=== PATIENT | female | born 1955 | race Caucasian/White ===

== ENCOUNTER → 2018-03-03 | Outpatient (CLI) | payer MEDICARE, OTHER ==
--- NOTE | 2018-03-03 09:34 | MR ---
EXAMINATION TYPE: MR chest wo/w con DATE OF EXAM: 03/03/2018 COMPARISON: CT chest October 20, 2016. HISTORY: Localized swelling, mass and lump, trunk. Palpable right-sided lump per patient for 2 months .. CONTRAST: Standard multiplanar, multisequence MRI departmental protocol utilizing 4.5 mL intravenous Gadavist g adolinium contrast. FINDINGS: A vitamin E capsule is placed at level of palpable abnormality posterior lateral lower righ t thorax on axial image 38. At this level I see no worrisome solid or cystic mass or abnormal fluid c ollection. No suspicious skin thickening is seen. No suspicious enhancement is noted. Visualized lungs are grossly clear. Scattered fibroglandular tissue seen in both breasts. There are m ultiple cystic lesions in visualized portion of right kidney. Partially imaged which correlates with CT abdomen and pelvis October 03, 2016. IMPRESSION: No suspicious mass or finding is seen to account for patient's symptoms posterior lateral right lower thorax.
== END | disposition home or self-care (01) ==
LOC: RADMRIMAIN 07:39
PROVIDERS: ATTEND Family Medicine
DX: R22.2 Localized swelling, mass and lump, trunk (principal)
CPT/HCPCS: 71552; A9581

== ENCOUNTER 2018-05-15 16:47 | Inpatient (IN) | payer MEDICARE, OTHER ==
--- NOTE | 2018-05-15 18:11 | ED ---
Chest Pain HPI - General Chief Complaint: Chest Pain Stated Complaint: Abnormal Ekg Time Seen by Provider: 05/15/18 18:11 Source: patient Mode of arrival: ambulatory Limitations: no limitations - History of Present Illness Initial Comments: Ms. Reid is a 62-year-old female with a history of hyperlipidemia, diabetes and tobacco abuse who presents the ED today for evaluation of chest pain. Patient reports that over the weekend she was experiencing intermittent chest pressure, the symptoms were worse with any exertion. Patient states that she was camping and when she walked from her campsite [address] down to her sister kim that she would have pressure in her chest and a feeling that she couldn't catch her breath which would prompt her to have to sit down and rest. Patient reports that this became concerning for her so she called her primary care physician and was evaluated in the office today. Upon evaluation she had an EKG completed which revealed some changes from her previous EKG which was completed in 2012. At that time she was advised to come to the ER for further evaluation. Patient states that she had an EKG in 2012, around that time she also underwent a stress test but was unable to complete it. She never followed up with cardiology. She has no known cardiac disease. She does have a family history of cardiac disease. - Related Data Home Medications Medication Instructions Recorded Confirmed Atorvastatin [Lipitor] 10 mg PO HS 10/03/16 05/15/18 Naproxen 500 mg PO Q12HR PRN 10/03/16 05/15/18 metFORMIN HCL [Glucophage] 500 mg PO DAILY 10/03/16 05/15/18 Cholecalciferol [Vitamin D3] 1,000 unit PO DAILY 05/15/18 05/15/18 Cyanocobalamin (Vitamin B-12) 1,000 mcg PO DAILY 05/15/18 05/15/18 [Vitamin B-12] Insulin Degludec [Tresiba 26 unit SQ DAILY 05/15/18 05/15/18 Flextouch U-200] Allergies Allergy/AdvReac Type Severity Reaction Status Date / Time aspirin AdvReac Nausea & Verified 05/15/18 19:09 Vomiting Review of Systems ROS Statement: Those systems with pertinent positive or pertinent negative responses have been documented in the HPI. ROS Other: All systems not noted in ROS Statement are negative. Constitutional: Denies: fever, chills ENT: Denies: throat pain Respiratory: Reports: cough Cardiovascular: Reports: chest pain, dyspnea on exertion Gastrointestinal: Denies: abdominal pain, nausea, vomiting Genitourinary: Denies: urgency, dysuria Musculoskeletal: Denies: back pain Skin: Denies: rash Neurological: Denies: headache, weakness Psychiatric: Denies: anxiety, depression Hematological/Lymphatic: Denies: easy bleeding, easy bruising EKG Findings - EKG Comments: EKG Findings:: EKG performed at 1826 - rate is 83, rhythm is normal sinus, axis , normal intervals, patient is noted to have T-wave inversions in all lateral leads. No acute ST elevations. Past Medical History Past Medical History: Diabetes Mellitus Additional Past Medical History / Comment(s): hypercholestremia History of Any Multi-Drug Resistant Organisms: None Reported Past Surgical History: Appendectomy, Cholecystectomy Additional Past Surgical History / Comment(s): tubal ligation, Past Psychological History: No Psychological Hx Reported Smoking Status: Current some day smoker Past Alcohol Use History: None Reported Past Drug Use History: None Reported General Exam Limitations: no limitations Course Vital Signs 05/15/18 05/15/18 17:47 20:47 Temperature 98.3 F Pulse Rate 81 78 Respiratory 18 16 Rate Blood Pressure 122/76 113/67 O2 Sat by Pulse 100 98 Oximetry Chest Pain MDM - Differential Diagnosis ACS - MDM The patient was seen and evaluated, history was obtained from the patient. Patient with no known cardiac history however has multiple risk factors HEART score - 9 EKG with significant T wave inversions Aspirin was ordered, patient initially declined stating that gives her nausea. I stressed to the patient the importance of taking aspirin having chest pain. Patient is agreeable. Nitro paste was ordered Labs resulted with an elevated troponin, repeat EKG was ordered, patient care was discussed with cardiology. Repeat EKG again reveals T-wave inversions but less so than previous Cardiology recommends patient be given by mouth Lopressor, IV nitro, IV heparin , bed rest with bedside commode. Nothing by mouth at midnight with the plan for cardiac catheterization in the morning. Recommended that if patient experiences any chest pain night a repeat EKG be performed to cardiology be notified. Patient care was discussed with Dr Che who accepts admission for NSTEMI with consult to cardiology and plan for cardiac cath in the morning. Disposition Clinical Impression: NSTEMI (non-ST elevated myocardial infarction) Disposition: ADMITTED IP TO THIS HOSP Referrals: Fernanda Villalba MD [Primary Care Provider] - 1-2 days Decision Time: 20:10
[2018-05-15] MEDS ORDERED: ASPIRIN 81 MG PO STA (18:20)
[2018-05-15] MEDS ORDERED: NITROGLYCERIN OINT 1 INCH/GM PACKET TOPICAL STA (18:20)
[2018-05-15 19:00] LABS: Basophils # (A) 0.1 k/uL (0-0.2); Basophils % (A) 1 %; Eosinophils # (A) 0.2 k/uL (0-0.7); Eosinophils % (A) 2 %; HCT 40.9 % (34.0-46.0); HGB 14.1 gm/dL (11.4-16.0); Lymphocytes # (A) 2.6 k/uL (1.0-4.8); Lymphocytes % (A) 31 %; MCH 31.4 pg (25.0-35.0); MCHC 34.4 g/dL (31.0-37.0); MCV 91.4 fL (80.0-100.0); Mean Platelet Volume 6.9; Monocytes # (A) 0.6 k/uL (0-1.0); Monocytes % (A) 7 %; Neutrophils # (A) 4.9 k/uL (1.3-7.7); Neutrophils % (A) 58 %; Platelet Count 378 k/uL (150-450); RBC 4.47 m/uL (3.80-5.40); RDW 13.4 % (11.5-15.5); WBC 8.3 k/uL (3.8-10.6)
--- NOTE | 2018-05-15 19:05 | XR ---
EXAMINATION TYPE: XR chest 2V DATE OF EXAM: 05/15/2018 COMPARISON: 10/03/2016 HISTORY: Chest pain TECHNIQUE: Frontal and lateral views of the chest are obtained. FINDINGS: Heart and mediastinum are normal. Lungs are clear. Diaphragm is normal. Bony thorax is int act. There are chest leads. IMPRESSION: Normal chest. No change.
[2018-05-15 19:11] LABS: ALT 26 U/L (9-52); AST 24 U/L (14-36); Albumin 4.1 g/dL (3.5-5.0); Alkaline Phosphatase 54 U/L (38-126); Anion Gap 7 mmol/L; Blood Urea Nitrogen 12 mg/dL (7-17); Calcium 9.1 mg/dL (8.4-10.2); Carbon Dioxide 26 mmol/L (22-30); Chloride 107 mmol/L (98-107); Glucose 196 mg/dL (74-99); Magnesium 1.9 mg/dL (1.6-2.3); Potassium 4.2 mmol/L (3.5-5.1); Sodium 140 mmol/L (137-145); Total Bilirubin 0.7 mg/dL (0.2-1.3); Total Protein 6.1 g/dL (6.3-8.2)
[2018-05-15 19:35] LABS: Creatine Kinase MB 10.5 ng/mL (0.0-2.4); Troponin I 0.89 ng/mL (0.000-0.034)
[2018-05-15 19:36] LABS: Partial Thromboplastin Time 24.6 sec (22.0-30.0); Prothrombin Time 9.8 sec (9.0-12.0)
[2018-05-15] MEDS ORDERED: HEPARIN SODIUM,PORCINE 5,000 UNIT/ML 1 ML VIAL IV PRN (19:37)
[2018-05-15] MEDS ORDERED: HEPARIN SODIUM,PORCINE 5,000 UNIT/ML 1 ML VIAL IV ONE (19:37)
[2018-05-15 19:49] LABS: Glucose,Whole Blood 147 mg/dL (75-99)
[2018-05-15] MEDS ORDERED: NITROGLYCERIN-D5W PMX 50 MG in DEXTROSE/WATER 1 250ML.BAG IV ONE (20:07)
[2018-05-15] MEDS ORDERED: METOPROLOL TARTRATE 25 MG TAB PO STA (20:07)
[2018-05-15] MEDS ORDERED: NALOXONE 0.4 MG/ML 1 ML VIAL IV PRN (20:10)
[2018-05-15] MEDS: SODIUM CHLORIDE 0.9% 1,000 ML IV SCH (20:49)
[2018-05-15] MEDS: HEPARIN SOD,PORK IN 0.45% NACL 25,000 UNIT in 0.45% NACL 1 500ML.BAG IV SCH (20:53)
[2018-05-16 05:40] LABS: Glucose,Whole Blood 43 mg/dL (75-99)
[2018-05-16 05:57] LABS: Glucose,Whole Blood 85 mg/dL (75-99)
[2018-05-16 06:34] LABS: Basophils # (A) 0.1 k/uL (0-0.2); Basophils % (A) 1 %; Eosinophils # (A) 0.2 k/uL (0-0.7); Eosinophils % (A) 2 %; HCT 38.5 % (34.0-46.0); HGB 12.7 gm/dL (11.4-16.0); Lymphocytes # (A) 1.6 k/uL (1.0-4.8); Lymphocytes % (A) 18 %; MCH 31.1 pg (25.0-35.0); MCHC 33.1 g/dL (31.0-37.0); MCV 93.9 fL (80.0-100.0); Mean Platelet Volume 7.2; Monocytes # (A) 0.7 k/uL (0-1.0); Monocytes % (A) 8 %; Neutrophils # (A) 6.6 k/uL (1.3-7.7); Neutrophils % (A) 71 %; Platelet Count 330 k/uL (150-450); RDW 13.5 % (11.5-15.5); WBC 9.3 k/uL (3.8-10.6)
[2018-05-16] MEDS: SODIUM CHLORIDE 0.9% 1,000 ML IV SCH (08:41)
[2018-05-16] MEDS: ACETAMINOPHEN TAB 325 MG TAB PO PRN (09:38)
[2018-05-16] MEDS ORDERED: NITROGLYCERIN SL TABS 0.4 MG TAB SUBLINGUAL PRN ×2 (09:42→15:27)
[2018-05-16] MEDS ORDERED: ATORVASTATIN 80 MG TAB PO STA (09:42)
[2018-05-16] MEDS ORDERED: ASPIRIN 325 MG TAB PO STA (09:42)
[2018-05-16] MEDS ORDERED: ALPRAZolam 0.25 MG TAB PO PRN (09:42)
[2018-05-16] MEDS ORDERED: ALPRAZolam 0.5 MG TAB PO PRN (09:42)
--- NOTE | 2018-05-16 10:49 | P.CRDCN ---
History of Present Illness Consult date: 05/16/18 Chief complaint: Chest discomfort History of present illness: This is a pleasant 62-year-old female patient with a past medical history significant for diabetes, hypertension, dyslipidemia, and significant history of smoking, presented to the emergency room complaining of chest discomfort. The patient was in her usual state of health until this past when she started experiencing intermittent episodes of chest discomfort. She describes classical anginal symptoms of chest discomfort. She stated that the discomfort is only with exertion and better with resting. Every time she moved to do something at home she developed chest discomfort and once she stopped doing what she is doing the pain will go away. The pain was a pressure in the middle of the chest associated with shortness of breath and sweating. Currently the patient is pain-free on heparin IV. The patient was ruled in for acute non-ST patient myocardial infarction. The troponin came in to be alleviated. The EKG showed sinus rhythm with T-wave inversion throughout the chest leads. Giving the patient's symptoms and blood work which indicated acute non-ST patient myocardial infarction I did recommend proceeding with a heart catheterization. The procedure in details was explained to the patient as well as to her daughter and her sister in the room. The patient will be scheduled to undergo the procedure in the next few hours. Past Medical History Past Medical History: Diabetes Mellitus Additional Past Medical History / Comment(s): hypercholestremia History of Any Multi-Drug Resistant Organisms: None Reported Past Surgical History: Appendectomy, Cholecystectomy Additional Past Surgical History / Comment(s): tubal ligation, Past Anesthesia/Blood Transfusion Reactions: No Reported Reaction Past Psychological History: No Psychological Hx Reported Smoking Status: Current some day smoker Past Alcohol Use History: None Reported Past Drug Use History: None Reported - Past Family History Father Family Medical History: Cancer Mother Family Medical History: Cancer, Coronary Artery Disease (CAD), Diabetes Mellitus , Myocardial Infarction ([place]) Medications and Allergies Home Medications Medication Instructions Recorded Confirmed Type Atorvastatin [Lipitor] 10 mg PO HS 10/03/16 05/15/18 History Naproxen 500 mg PO Q12HR PRN 10/03/16 05/15/18 History metFORMIN HCL [Glucophage] 500 mg PO DAILY 10/03/16 05/15/18 History Cholecalciferol [Vitamin D3] 1,000 unit PO DAILY 05/15/18 05/15/18 History Cyanocobalamin (Vitamin B-12) 1,000 mcg PO DAILY 05/15/18 05/15/18 History [Vitamin B-12] Insulin Degludec [Tresiba 26 unit SQ DAILY 05/15/18 05/15/18 History Flextouch U-200] Allergies Allergy/AdvReac Type Severity Reaction Status Date / Time aspirin AdvReac Nausea & Verified 05/15/18 19:09 Vomiting Physical Exam Vitals: Vital Signs Temp Pulse Pulse Resp BP BP Pulse Ox 05/16/18 08:30 96.7 F L 70 18 96/55 96 05/16/18 04:00 97.1 F L 76 16 103/56 97 05/16/18 00:00 97.5 F L 74 15 86/55 97 05/15/18 22:19 76 17 90/62 97 05/15/18 21:46 74 17 97/59 95 05/15/18 21:16 84 17 106/56 96 05/15/18 20:47 78 16 113/67 98 05/15/18 20:40 97.5 F L 74 15 86/55 97 05/15/18 17:47 98.3 F 81 18 122/76 100 Intake and Output 05/15/18 05/16/18 05/16/18 22:59 06:59 14:59 Intake Total 132.358 62.422 Output Total 150 400 Balance -17.642 -337.578 Intake: Intake, IV Titration 132.358 62.422 Amount Heparin Sod,Pork in 0.45% 57.358 62.422 NaCl 25,000 unit In 0.45 % NaCl 1 500ml.bag @ 12 UNITS/KG/HR 11.21 mls/hr IV .Q24H [facility] Rx#: [id number] Nitroglycerin-D5w Pmx 50 0 mg In Dextrose/Water 1 250ml.bag @ 5 MCG/MIN 1.5 mls/hr IV .Q24H ONE Rx#: [id number] Sodium Chloride 0.9% 1, 75 000 ml @ 75 mls/hr IV . [id number] [facility] Rx#:[id number] Output: Urine 150 400 Other: Voiding Method Bedside Commode Bedside Commode # Voids 1 Weight 46.8 kg 46.8 kg - Constitutional General appearance: no acute distress - Respiratory Respiratory: bilateral: CTA - Cardiovascular Rhythm: regular Heart sounds: normal: S1, S2 Results 05/16/18 06:13 05/15/18 18:44 Cardiac Enzymes 05/15/18 05/15/18 05/16/18 Range/Units 18:44 18:44 00:48 AST 24 (14-36) U/L CK-MB (CK-2) 10.5 H* (0.0-2.4) ng/mL Troponin I 0.890 H* 1.910 H* (0.000-0.034) ng/mL 05/16/18 Range/Units 06:13 AST (14-36) U/L CK-MB (CK-2) (0.0-2.4) ng/mL Troponin I 1.820 H* (0.000-0.034) ng/mL Coagulation 05/15/18 05/16/18 05/16/18 Range/Units 18:44 00:48 06:57 PT 9.8 (9.0-12.0) sec APTT 24.6 88.9 H 41.8 H (22.0-30.0) sec CBC 05/15/18 05/16/18 Range/Units 18:44 06:13 WBC 8.3 9.3 (3.8-10.6) k/uL RBC 4.47 4.10 (3.80-5.40) m/uL Hgb 14.1 12.7 (11.4-16.0) gm/dL Hct 40.9 38.5 (34.0-46.0) % Plt Count 378 330 (150-450) k/uL Comprehensive Metabolic Panel 05/15/18 Range/Units 18:44 Sodium 140 (137-145) mmol/L Potassium 4.2 (3.5-5.1) mmol/L Chloride 107 (98-107) mmol/L Carbon Dioxide 26 (22-30) mmol/L BUN 12 (7-17) mg/dL Creatinine 0.55 (0.52-1.04) mg/dL Glucose 196 H (74-99) mg/dL Calcium 9.1 (8.4-10.2) mg/dL AST 24 (14-36) U/L ALT 26 (9-52) U/L Alkaline Phosphatase 54 (38-126) U/L Total Protein 6.1 L (6.3-8.2) g/dL Albumin 4.1 (3.5-5.0) g/dL Current Medications Generic Name Dose Route Start Last Admin Trade Name Javier PRN Reason Stop Dose Admin Acetaminophen 650 mg 05/16/18 09:13 05/16/18 09:38 Tylenol Tab PO 650 mg Q6HR PRN Administration Fever and/ or Pain Alprazolam 0.25 mg 05/16/18 09:42 Xanax PO Q6HR PRN Mild Anxiety Alprazolam 0.5 mg 05/16/18 09:42 Xanax PO Q6HR PRN Moderate Anxiety Heparin Sodium (Porcine) 0 unit 05/15/18 19:37 05/16/18 08:41 Heparin IV 1,170 unit PER PROTOCOL PRN Administration Low PTT Protocol Heparin Sodium/Sodium Chloride 500 mls @ 11.21 mls/hr 05/15/18 19:45 08:41 25,000 unit/ Sodium Chloride IV 12 units/kg/hr .Q24H DONNA 11.21 mls/hr Titration Protocol 12 UNITS/KG/HR Nitroglycerin/Dextrose 50 mg/ 250 mls @ 1.5 mls/hr 05/15/18 20:07 05/15/18 20 :49 IV Solution IV 05/16/18 20:06 5 mcg/min .Q24H ONE 1.5 mls/hr Administration Protocol 5 MCG/MIN Sodium Chloride 1,000 mls @ 75 mls/hr 05/15/18 20:15 05/16/18 08:41 Saline 0.9% IV 75 mls/hr .[id number] DONNA Administration Naloxone HCl 0.2 mg 05/15/18 20:10 Narcan IV Q2M PRN Opioid Reversal Nitroglycerin 0.4 mg 05/16/18 09:42 Nitrostat SUBLINGUAL Q5M PRN Chest Pain Intake and Output 05/15/18 05/16/18 05/16/18 22:59 06:59 14:59 Intake Total 132.358 62.422 Output Total 150 400 Balance -17.642 -337.578 Intake: Intake, IV Titration 132.358 62.422 Amount Heparin Sod,Pork in 0.45% 57.358 62.422 NaCl 25,000 unit In 0.45 % NaCl 1 500ml.bag @ 12 UNITS/KG/HR 11.21 mls/hr IV .Q24H [facility] Rx#: [id number] Nitroglycerin-D5w Pmx 50 0 mg In Dextrose/Water 1 250ml.bag @ 5 MCG/MIN 1.5 mls/hr IV .Q24H ONE Rx#: [id number] Sodium Chloride 0.9% 1, 75 000 ml @ 75 mls/hr IV . [id number] [facility] Rx#:[id number] Output: Urine 150 400 Other: Voiding Method Bedside Commode Bedside Commode # Voids 1 Weight 46.8 kg 46.8 kg 05/16/18 06:13 05/15/18 18:44 Assessment and Plan Assessment: Assessment #1 acute non-ST elevation myocardial infarction #2 significant history of smoking #3 diabetes type 2 #4 hypertension #5 dyslipidemia Plan #1 the patient is scheduled to undergo a heart catheterization #2 further recommendation to follow that. #3 obtain an echocardiogram was Doppler #4 antiplatelet and anti-ischemic medications #5 follow-up with the patient Thank you for allowing us participate in her care
--- NOTE | 2018-05-16 11:49 | P.HPIM ---
History of Present Illness H&P Date: 05/16/18 Chief Complaint: Chest pain This is a 62-year-old female, patient of Dr. Villalba. She has a known past medical history of nicotine dependence, diabetes mellitus and hyperlipidemia. Patient reports having episodes of chest pain intermittently over the last 3-4 days. She reports that the pain has radiated up into both shoulders bilaterally and down into the left upper arm. Chest pain was worse with activity. Pain was relieved with sitting. She denies any shortness of breath, nausea or diaphoresis with the chest pain. She does admit to feeling dizzy and lightheaded. She initially went to her PCP office because of the chest pain. EKG was done there and was reported to be abnormal and patient was told to go to the emergency room for further evaluation and treatment. Patient was found to have an acute non-ST elevated myocardial infarction. Troponins on admission 0.890, 1.910, 1.820. She's been seen and evaluated by cardiology she's currently on IV heparin and nitroglycerin drip. She is scheduled for a heart catheterization this afternoon. Patient has been having episodes of hypotension. Chest x-ray was negative. EKG shows normal sinus rhythm, septal infarct age undetermined and T-wave abnormality consider anterior lateral ischemia. Patient does have a mother who had open heart surgery at an older age. She denies any fevers chills or sweats. Denies any nausea vomiting bowel movement changes or urinary symptoms. Review of Systems Please refer to HPI otherwise unremarkable Past Medical History Past Medical History: Diabetes Mellitus Additional Past Medical History / Comment(s): hypercholestremia History of Any Multi-Drug Resistant Organisms: None Reported Past Surgical History: Appendectomy, Cholecystectomy Additional Past Surgical History / Comment(s): tubal ligation, Past Anesthesia/Blood Transfusion Reactions: No Reported Reaction Past Psychological History: No Psychological Hx Reported Smoking Status: Current some day smoker Past Alcohol Use History: None Reported Past Drug Use History: None Reported - Past Family History Father Family Medical History: Cancer Mother Family Medical History: Cancer, Coronary Artery Disease (CAD), Diabetes Mellitus , Myocardial Infarction ([place]) Medications and Allergies Home Medications Medication Instructions Recorded Confirmed Type Atorvastatin [Lipitor] 10 mg PO HS 10/03/16 05/15/18 History Naproxen 500 mg PO Q12HR PRN 10/03/16 05/15/18 History metFORMIN HCL [Glucophage] 500 mg PO DAILY 10/03/16 05/15/18 History Cholecalciferol [Vitamin D3] 1,000 unit PO DAILY 05/15/18 05/15/18 History Cyanocobalamin (Vitamin B-12) 1,000 mcg PO DAILY 05/15/18 05/15/18 History [Vitamin B-12] Insulin Degludec [Tresiba 26 unit SQ DAILY 05/15/18 05/15/18 History Flextouch U-200] Allergies Allergy/AdvReac Type Severity Reaction Status Date / Time aspirin AdvReac Nausea & Verified 05/15/18 19:09 Vomiting Physical Exam Vitals: Vital Signs Temp Pulse Pulse Resp BP BP Pulse Ox 05/16/18 08:30 96.7 F L 70 18 96/55 96 05/16/18 04:00 97.1 F L 76 16 103/56 97 05/16/18 00:00 97.5 F L 74 15 86/55 97 05/15/18 22:19 76 17 90/62 97 05/15/18 21:46 74 17 97/59 95 05/15/18 21:16 84 17 106/56 96 05/15/18 20:47 78 16 113/67 98 05/15/18 20:40 97.5 F L 74 15 86/55 97 05/15/18 17:47 98.3 F 81 18 122/76 100 Intake and Output 05/15/18 05/16/18 05/16/18 22:59 06:59 14:59 Intake Total 132.358 62.422 Output Total 150 400 Balance -17.642 -337.578 Intake: Intake, IV Titration 132.358 62.422 Amount Heparin Sod,Pork in 0.45% 57.358 62.422 NaCl 25,000 unit In 0.45 % NaCl 1 500ml.bag @ 12 UNITS/KG/HR 11.21 mls/hr IV .Q24H [facility] Rx#: [id number] Nitroglycerin-D5w Pmx 50 0 mg In Dextrose/Water 1 250ml.bag @ 5 MCG/MIN 1.5 mls/hr IV .Q24H ONE Rx#: [id number] Sodium Chloride 0.9% 1, 75 000 ml @ 75 mls/hr IV . [id number] [facility] Rx#:[id number] Output: Urine 150 400 Other: Voiding Method Bedside Commode Bedside Commode # Voids 1 Weight 46.8 kg 46.8 kg Head normocephalic Neck supple Lungs clear to auscultation bilaterally no wheezing or crackles Heart regular rate and rhythm S1-S2, no rub or gallop Abdomen is soft nontender nondistended positive bowel sounds no hepatosplenomegaly Extremities no edema Neuro alert and orientated to 3 Results CBC & Chem 7: 05/16/18 06:13 05/15/18 18:44 Labs: Abnormal Lab Results - Last 24 Hours (Table) 05/15/18 05/15/18 05/15/18 Range/Units 18:44 18:44 19:39 APTT (22.0-30.0) sec Glucose 196 H (74-99) mg/dL POC Glucose (mg/dL) 147 H (75-99) mg/dL Total Creatine Kinase 153 H (30-135) U/L CK-MB (CK-2) 10.5 H* (0.0-2.4) ng/mL Troponin I 0.890 H* (0.000-0.034) ng/mL Total Protein 6.1 L (6.3-8.2) g/dL 05/16/18 05/16/18 05/16/18 Range/Units 00:48 00:48 05:38 APTT 88.9 H (22.0-30.0) sec Glucose (74-99) mg/dL POC Glucose (mg/dL) 43 L (75-99) mg/dL Total Creatine Kinase (30-135) U/L CK-MB (CK-2) (0.0-2.4) ng/mL Troponin I 1.910 H* (0.000-0.034) ng/mL Total Protein (6.3-8.2) g/dL 05/16/18 05/16/18 Range/Units 06:13 06:57 APTT 41.8 H (22.0-30.0) sec Glucose (74-99) mg/dL POC Glucose (mg/dL) (75-99) mg/dL Total Creatine Kinase (30-135) U/L CK-MB (CK-2) (0.0-2.4) ng/mL Troponin I 1.820 H* (0.000-0.034) ng/mL Total Protein (6.3-8.2) g/dL Thrombosis Risk Factor Assmnt - Choose All That Apply Any of the Below Risk Factors Present?: Yes Each Factor Represents 1 point: Acute [place] Other Risk Factors: Yes Each Risk Factor Represents 2 Points: Age 61-74 years Thrombosis Risk Factor Assessment Total Risk Factor Score: 3 Thrombosis Risk Factor Assessment Level: Moderate Risk Assessment and Plan Assessment: 1. Acute non-ST elevated myocardial infarction present on admission: Patient scheduled for heart catheterization this afternoon. Continue IV heparin. Cardiology following closely 2. Diabetes mellitus type 2: Episodes of hypoglycemia likely related to patient 's nothing by mouth status. We'll hold patient's metformin and Tresiba. Continue to monitor blood sugars and sliding scale if needed. Patient was given a sandwich this morning per cardiology. Continue to monitor glucose levels 3. Nicotine dependence: Discussed smoking cessation for greater than 3 minutes. Patient refusing nicotine patch 4. Hyperlipidemia GI prophylaxis Pepcid and DVT prophylaxis IV heparin
[2018-05-16 13:21] LABS: Glucose,Whole Blood 262 mg/dL (75-99)
[2018-05-16] MEDS: INSULIN ASPART 100 UNIT/ML 1 ML 10 ML VIAL SQ SCH ×3 (13:53→21:26)
[2018-05-16] MEDS ORDERED: MIDAZOLAM 2 MG/2 ML VIAL IVP ONE (14:47)
[2018-05-16] MEDS ORDERED: LIDOCAINE 1% (PF) 10MG/ML VIAL SQ ONE (14:48)
[2018-05-16] MEDS ORDERED: SODIUM CHLORIDE 0.9% 1,000 ML IV ONE (14:53)
[2018-05-16] MEDS ORDERED: fentaNYL (PF) 50 MCG/ML 2 ML AMP IVP ONE (14:53)
[2018-05-16] MEDS ORDERED: BIVALIRUDIN BOLUS 250 MG/50 ML IV ONE (15:01)
[2018-05-16] MEDS ORDERED: BIVALIRUDIN 250 MG in SODIUM CHLORIDE 0.9% 50 ML IV ONE (15:02)
[2018-05-16] MEDS ORDERED: CLOPIDOGREL 75 MG TAB PO ONE (15:07)
[2018-05-16] MEDS ORDERED: NITROGLYCERIN 1000MCG/10ML SYRINGE INTRACORON ONE (15:12)
[2018-05-16] MEDS ORDERED: IOPAMIDOL-370 125ML BTL INJ ONE (15:18)
[2018-05-16] MEDS ORDERED: RX INFO: IV CONTRAST WAS GIVEN 1 EACH MISC MISCELLANE PRN (15:27)
[2018-05-16] MEDS ORDERED: ATROPINE SULFATE 0.1 MG/ML 10ML SYRINGE IV PRN (15:27)
[2018-05-16] MEDS ORDERED: ZOLPIDEM 5 MG TAB PO PRN (15:27)
[2018-05-16] MEDS ORDERED: MAG HYDROX/AL HYDROX/SIMETH 30 ML CUP PO PRN (15:27)
[2018-05-16] MEDS ORDERED: SODIUM CHLORIDE 0.9% 1,000 ML IV SCH (15:30)
[2018-05-16] MEDS: HEPARIN SOD,PORK IN 0.45% NACL 25,000 UNIT in 0.45% NACL 1 500ML.BAG IV SCH (16:09)
[2018-05-16 16:22] LABS: Glucose,Whole Blood 230 mg/dL (75-99)
--- NOTE | 2018-05-16 16:35 | CC ---
CARDIAC CATHETERIZATION REPORT DATE OF SERVICE: May 16, 2018 PERFORMING PHYSICIAN: Jesús Casas MD, vegetable specker. PROCEDURE PERFORMED: 1. Selective right and left coronary angiogram. 2. Left heart catheterization. 3. Successful stenting of the proximal LAD using 2.5 x 23 mm Xience KENIA with good angiographic results. INDICATION: This is a pleasant 62-year-old female patient off with diabetes, hypertension, and significant history of smoking, presented to the emergency room with chest discomfort and was ruled in for acute non ST elevation myocardial infarction. Heart catheterization was recommended. APPROACH: Right common femoral artery. COMPLICATION: None. LEVEL OF SEDATION: Moderate sedation length of 37 minutes. PROCEDURE DESCRIPTION: After obtaining an informed consent, the patient was brought to cardiac phlebotomist medical lab assistant. The right common femoral artery was cannulated using micropuncture technique and a micropuncture wire passed easily then I placed a 6-Egyptian sheath in the right common femoral artery. After that, I did selective right and left coronary angiogram using JR 3.5 and JL4 catheters. Left heart catheterization was performed using the JR4, which flipped into the LV then I did pullback across aortic valve. After that I did intervene on the LAD. Please see a separate paragraph for that. SELECTIVE CORONARY ANGIOGRAM: 1. The RCA is a moderate caliber vessel and it is a dominant vessel. It does have mild diffuse disease. It bifurcates into PDA and PLV branches both are angiographically normal. 2. The left main has mild disease in the ostium. It bifurcates into the circumflex and left anterior descending artery. 3. The left circumflex is a moderate caliber vessel and is a nondominant vessel with the proximal circ is normal and gives rise into a large OM branch which has disease in the proximal portion appeared to be in the range of 50% to 60%. The left circumflex continues after that as a moderate caliber vessel in the AV groove. 4. The LAD: The proximal LAD has a lesion appeared to be in the range of 90% with haziness appeared to be a thrombus. This lesion is by the bifurcation of the first diagonal branch. The LAD in the mid and distal portion appeared to have mild diffuse disease only. In the midportion gives rise into a second diagonal branch which seems to be angiographically normal. 5. HEMODYNAMICS: The left ventricular end-diastolic pressure was 12 mmHg and no gradient was identified across the aortic valve. PCI OF THE LAD: Anticoagulation was initiated using Angiomax. Subsequently I took JL3 guide and the left main was engaged. A whisper wire was used to wire the LAD. After that I did balloon angioplasty using 2.0 x 12 mm balloon before I deployed 2.5 x 23 mm Xience KENIA where the stent was positioned under fluoroscopy guidance and deployed under its nominal pressure. The following angiogram showed good angiographic results with reduction of stenosis from 80-90% to 0% with good ELIZABETH-3 flow. The procedure was completed without any complication. CONCLUSION: 1. Acute non ST elevation myocardial infarction. 2. Mild disease involving the RCA. 3. Intermediate disease involving OM branch of the left circumflex appeared to be in the range of 50% to 60%. 4. Critical disease involving the proximal LAD with plaque rupture and thrombus formation. 5. Successful stenting of the proximal LAD as described above. POSTPROCEDURE MANAGEMENT: 1. Maximize medical treatment. 2. Follow up with the patient. MMMONIQUE / IJN: [id number] /
--- NOTE | 2018-05-16 17:09 | ECHOF ---
Referral Reason:CHEST PAIN MEASUREMENTS -------- HEIGHT: 149.9 cm WEIGHT: 46.7 kg BP: 96/55 IVSd: 0.8 cm (0.6 - 1.1) LVIDd: 4.0 cm (3.9 - 5.3) LVPWd: 0.8 cm (0.6 - 1.1) IVSs: 1.0 cm LVIDs: 3.4 cm LVPWs: 1.1 cm LAESV Index (A-L): 21.28 ml/m Ao Diam: 3.0 cm (2.0 - 3.7) AV Cusp: 1.4 cm (1.5 - 2.6) MV E Christiano: 1.24 m/s MV DecT: 217 ms MV A Christiano: 1.21 m/s MV E/A Ratio: 1.02 RAP: 5.00 mmHg RVSP: 27.14 mmHg FINDINGS -------- Sinus rhythm. This was a technically adequate study. The left ventricular size is normal. Left ventricular wall thickness is normal. Overall left vent ricular systolic function is moderate-severely impaired with, an EF between 30 - 35 %. Septal Hypok inesis Apical Hypokinesis. The right ventricle is normal in size and function. Normal LA size by volume 22+/-6 ml/m2. The right atrium is normal in size. There is mild aortic valve sclerosis. There is no evidence of aortic regurgitation. There is no e vidence of aortic stenosis. The mitral valve leaflets are mildly thickened. Mild mitral regurgitation is present. Trace tricuspid regurgitation present. Right ventricular systolic pressure is normal at < 35 mmHg. There is no evidence of pulmonary hypertension. The pulmonic valve was not well visualized. The aortic root size is normal. Normal inferior vena cava with normal inspiratory collapse consistent with estimated right atrial pre ssure of 5 mmHg. There is no pericardial effusion. CONCLUSIONS -------- 1. Sinus rhythm. 2. This was a technically adequate study. 3. The left ventricular size is normal. 4. Left ventricular wall thickness is normal. 5. Overall left ventricular systolic function is moderate-severely impaired with, an EF between 30 - 35 %. 6. Septal Hypokinesis 7. Apical Hypokinesis. 8. Normal LA size by volume 22+/-6 ml/m2. 9. There is mild aortic valve sclerosis. 10. The mitral valve leaflets are mildly thickened. 11. Mild mitral regurgitation is present. 12. Trace tricuspid regurgitation present. 13. Right ventricular systolic pressure is normal at < 35 mmHg. 14. There is no evidence of pulmonary hypertension. 15. The pulmonic valve was not well visualized. 16. The aortic root size is normal. 17. There is no pericardial effusion. CHIEF CONSTRUCTION INSPECTOR: Charly Vaca RDCS
[2018-05-16 19:17] LABS: Hemoglobin A1C 9.9 % (4.0-6.0)
[2018-05-16 21:05] LABS: Glucose,Whole Blood 236 mg/dL (75-99)
[2018-05-16] MEDS: METOPROLOL TARTRATE 25 MG TAB PO SCH (21:26)
[2018-05-17] MEDS: SODIUM CHLORIDE 0.9% 1,000 ML IV SCH ×2 (04:37→08:23)
[2018-05-17 06:33] LABS: Glucose,Whole Blood 124 mg/dL (75-99)
[2018-05-17] MEDS: INSULIN ASPART 100 UNIT/ML 1 ML 10 ML VIAL SQ SCH ×4 (06:38→21:37)
[2018-05-17 06:42] LABS: Basophils % (A) 1 %; Eosinophils # (A) 0.2 k/uL (0-0.7); Eosinophils % (A) 3 %; HCT 35.5 % (34.0-46.0); HGB 11.7 gm/dL (11.4-16.0); Lymphocytes # (A) 2.2 k/uL (1.0-4.8); Lymphocytes % (A) 27 %; MCV 94.1 fL (80.0-100.0); Mean Platelet Volume 7.2; Monocytes # (A) 0.6 k/uL (0-1.0); Monocytes % (A) 7 %; Neutrophils % (A) 61 %; Platelet Count 309 k/uL (150-450); RBC 3.78 m/uL (3.80-5.40); RDW 14.7 % (11.5-15.5); WBC 8.1 k/uL (3.8-10.6)
[2018-05-17 07:34] LABS: ALT 69 U/L (9-52); AST 51 U/L (14-36); Albumin 2.9 g/dL (3.5-5.0); Alkaline Phosphatase 46 U/L (38-126); Anion Gap 3 mmol/L; Blood Urea Nitrogen 13 mg/dL (7-17); Calcium 8.5 mg/dL (8.4-10.2); Carbon Dioxide 26 mmol/L (22-30); Chloride 112 mmol/L (98-107); Glucose 110 mg/dL (74-99); Potassium 4.3 mmol/L (3.5-5.1); Sodium 141 mmol/L (137-145); Total Bilirubin 0.8 mg/dL (0.2-1.3); Total Protein 4.8 g/dL (6.3-8.2)
[2018-05-17] MEDS: FAMOTIDINE 20 MG TAB PO SCH (08:22)
[2018-05-17] MEDS: CLOPIDOGREL 75 MG TAB PO SCH (08:22)
[2018-05-17] MEDS: METOPROLOL TARTRATE 25 MG TAB PO SCH ×2 (08:22→20:16)
[2018-05-17] MEDS: ASPIRIN 325 MG TAB PO SCH (08:22)
[2018-05-17 11:47] VITALS: BMI 21.7
[2018-05-17 11:49] LABS: Glucose,Whole Blood 202 mg/dL (75-99)
--- NOTE | 2018-05-17 15:37 | P.PN ---
Subjective Progress Note Date: 05/17/18 This is a 62-year-old female, patient of Dr. Villalba. She has a known past medical history of nicotine dependence, diabetes mellitus and hyperlipidemia. Patient reports having episodes of chest pain intermittently over the last 3-4 days. She reports that the pain has radiated up into both shoulders bilaterally and down into the left upper arm. Chest pain was worse with activity. Pain was relieved with sitting. She denies any shortness of breath, nausea or diaphoresis with the chest pain. She does admit to feeling dizzy and lightheaded. She initially went to her PCP office because of the chest pain. EKG was done there and was reported to be abnormal and patient was told to go to the emergency room for further evaluation and treatment. Patient was found to have an acute non-ST elevated myocardial infarction. Troponins on admission 0.890, 1.910, 1.820. She's been seen and evaluated by cardiology she's currently on IV heparin and nitroglycerin drip. She is scheduled for a heart catheterization this afternoon. Patient has been having episodes of hypotension. Chest x-ray was negative. EKG shows normal sinus rhythm, septal infarct age undetermined and T-wave abnormality consider anterior lateral ischemia. Patient does have a mother who had open heart surgery at an older age. She denies any fevers chills or sweats. Denies any nausea vomiting bowel movement changes or urinary symptoms. On 05/17/2018 patient underwent a cardiac catheterization yesterday and received a stent to the proximal LAD. Patient was started on Plavix 75 mg daily and aspirin 325 daily. Patient was also started on Lopressor 25 mg twice a day. Patient is anxious to get home. Per nursing staff, cardiology services would like to hold off on discharge until tomorrow due to management of medications. Denies chest pain or shortness breath at this time. Liver enzymes also trending up at this time. AST 51, ALT 69. Patient's home Lipitor has been increased to 20 mg this admission. We'll recheck labs tomorrow. Patient will need close follow-up outpatient. Objective - Vital Signs Vital signs: Vital Signs Temp 97.5 F L 05/17/18 11:15 Pulse 56 L 05/17/18 12:00 Resp 18 05/17/18 12:00 BP 128/67 05/17/18 11:15 Pulse Ox 96 05/17/18 11:15 Intake & Output 05/16/18 05/17/18 05/17/18 18:59 06:59 18:59 Intake Total 806.422 480 Output Total 600 Balance 206.422 480 Weight 48.7 kg 48.7 kg Intake: IV 308 Intake, IV Titration 262.422 Amount Heparin Sod,Pork in 0.45% 62.422 NaCl 25,000 unit In 0.45 % NaCl 1 500ml.bag @ 12 UNITS/KG/HR 11.21 mls/hr IV .Q24H DONNA Rx#: [id number] Sodium Chloride 0.9% 1, 200 000 ml @ 100 mls/hr IV . Q10H DONNA Rx#:[id number] Oral 236 480 Output: Urine 600 Other: Voiding Method Bedside Commode Bedside Commode Bedside Commode # Voids 0 1 3 # Bowel Movements 0 - Exam Head normocephalic Neck supple Lungs clear to auscultation bilaterally no wheezing or crackles Heart regular rate and rhythm S1-S2, no rub or gallop Abdomen is soft nontender nondistended positive bowel sounds no hepatosplenomegaly Extremities no edema Neuro alert and orientated to 3 - Labs CBC & Chem 7: 05/17/18 06:29 05/17/18 06:29 Labs: Abnormal Lab Results - Last 24 Hours (Table) 05/16/18 05/16/18 05/16/18 Range/Units 06:17 16:19 21:03 RBC (3.80-5.40) m/uL Chloride (98-107) mmol/L Creatinine (0.52-1.04) mg/dL Glucose (74-99) mg/dL POC Glucose (mg/dL) 230 H 236 H (75-99) mg/dL Hemoglobin A1c 9.9 H (4.0-6.0) % AST (14-36) U/L ALT (9-52) U/L Total Protein (6.3-8.2) g/dL Albumin (3.5-5.0) g/dL 05/17/18 05/17/18 05/17/18 Range/Units 06:29 06:29 06:31 RBC 3.78 L (3.80-5.40) m/uL Chloride 112 H (98-107) mmol/L Creatinine 0.49 L (0.52-1.04) mg/dL Glucose 110 H (74-99) mg/dL POC Glucose (mg/dL) 124 H (75-99) mg/dL Hemoglobin A1c (4.0-6.0) % AST 51 H (14-36) U/L ALT 69 H (9-52) U/L Total Protein 4.8 L (6.3-8.2) g/dL Albumin 2.9 L (3.5-5.0) g/dL 05/17/18 Range/Units 11:48 RBC (3.80-5.40) m/uL Chloride (98-107) mmol/L Creatinine (0.52-1.04) mg/dL Glucose (74-99) mg/dL POC Glucose (mg/dL) 202 H (75-99) mg/dL Hemoglobin A1c (4.0-6.0) % AST (14-36) U/L ALT (9-52) U/L Total Protein (6.3-8.2) g/dL Albumin (3.5-5.0) g/dL Assessment and Plan Assessment: 1. Acute non-ST elevated myocardial infarction present on admission: Patient scheduled for heart catheterization this afternoon. Patient underwent heart catheterization yesterday and received a stent to proximal LAD. Patient was started on Plavix 75 mg and aspirin 325. Lopressor 25 mg twice a day also added to patient came 2. Diabetes mellitus type 2: Episodes of hypoglycemia likely related to patient 's nothing by mouth status. We'll hold patient's metformin and Tresiba. Continue to monitor blood sugars and sliding scale if needed. Patient was given a sandwich this morning per cardiology. Continue to monitor glucose levels 3. Nicotine dependence: Discussed smoking cessation for greater than 3 minutes. Patient refusing nicotine patch 4. Hyperlipidemia. Patient's Lipitor has been increased to 20 mg this admission 5. Elevated liver enzymes possibly due to increase in Lipitor dose. AST 51, ALT 69. We'll recheck labs in a.m. Patient will need close monitoring upon discharge. Possible discharge tomorrow I performed an examination of the patient and discussed their management with the Nurse Practitioner. I have reviewed the Nurse Practitioner's notes and agree with the documented findings and plan of care
--- NOTE | 2018-05-17 15:49 | P.PN ---
Subjective Progress Note Date: 05/17/18 Principal diagnosis: NSTEMI Is a pleasant 62-year-old female patient with a past medical history significant for diabetes, hypertension, dyslipidemia and smoking. Presented to the emergency department complaining of chest discomfort for about 4 days. The discomfort was only with exertion and better with resting. EKG showed sinus rhythm with T-wave inversion throughout the chest leads and troponin elevation was indicative of non-ST elevation [place]. He subsequently underwent cardiac catheterization by Dr. Casas which showed mild disease involving the RCA, intermediate disease involving the OM branch of the left circumflex which appeared to be in the range of 50-60% and a critical lesion involving the proximal LAD with plaque rupture and thrombosis formation for which she underwent successful stenting. Echocardiogram with Doppler showed moderate to severely impaired LV systolic function with an ejection fraction of 30-35% with septal and apical hypokinesis and mild MR. Upon examination, patient is resting comfortably in bed. She denies further complaints of chest discomfort. She's been up ambulating without difficulties. Objective - Vital Signs Vital signs: Vital Signs Temp 97.5 F L 05/17/18 11:15 Pulse 56 L 05/17/18 12:00 Resp 18 05/17/18 12:00 BP 128/67 05/17/18 11:15 Pulse Ox 96 05/17/18 11:15 Intake & Output 05/16/18 05/17/18 05/17/18 18:59 06:59 18:59 Intake Total 806.422 480 Output Total 600 Balance 206.422 480 Weight 48.7 kg 48.7 kg Intake: IV 308 Intake, IV Titration 262.422 Amount Heparin Sod,Pork in 0.45% 62.422 NaCl 25,000 unit In 0.45 % NaCl 1 500ml.bag @ 12 UNITS/KG/HR 11.21 mls/hr IV .Q24H DONNA Rx#: [id number] Sodium Chloride 0.9% 1, 200 000 ml @ 100 mls/hr IV . Q10H DONNA Rx#:[id number] Oral 236 480 Output: Urine 600 Other: Voiding Method Bedside Commode Bedside Commode Bedside Commode # Voids 0 1 3 # Bowel Movements 0 - Exam PHYSICAL EXAMINATION: HEENT: Head is atraumatic, normocephalic. Pupils equal, round. Neck is supple. There is no elevated jugular venous pressure. HEART EXAMINATION: Heart sounds regular, S1 and S2 normal. No murmur or gallop heard. CHEST EXAMINATION: Lungs are clear to auscultation and precussion. No chest wall tenderness is noted on palpation or with deep breathing. ABDOMEN: Soft, nontender. Bowel sounds are heard. No organomegaly noted. EXTREMITIES: 2+ peripheral pulses with no evidence of peripheral edema and no calf tenderness noted. Right femoral puncture site soft without ecchymosis or hematoma.. NEUROLOGIC patient is awake, alert and oriented x3. . - Labs CBC & Chem 7: 05/17/18 06:29 05/17/18 06:29 Labs: Abnormal Lab Results - Last 24 Hours (Table) 05/16/18 05/16/18 05/16/18 Range/Units 06:17 16:19 21:03 RBC (3.80-5.40) m/uL Chloride (98-107) mmol/L Creatinine (0.52-1.04) mg/dL Glucose (74-99) mg/dL POC Glucose (mg/dL) 230 H 236 H (75-99) mg/dL Hemoglobin A1c 9.9 H (4.0-6.0) % AST (14-36) U/L ALT (9-52) U/L Total Protein (6.3-8.2) g/dL Albumin (3.5-5.0) g/dL 05/17/18 05/17/18 05/17/18 Range/Units 06:29 06:29 06:31 RBC 3.78 L (3.80-5.40) m/uL Chloride 112 H (98-107) mmol/L Creatinine 0.49 L (0.52-1.04) mg/dL Glucose 110 H (74-99) mg/dL POC Glucose (mg/dL) 124 H (75-99) mg/dL Hemoglobin A1c (4.0-6.0) % AST 51 H (14-36) U/L ALT 69 H (9-52) U/L Total Protein 4.8 L (6.3-8.2) g/dL Albumin 2.9 L (3.5-5.0) g/dL 05/17/18 Range/Units 11:48 RBC (3.80-5.40) m/uL Chloride (98-107) mmol/L Creatinine (0.52-1.04) mg/dL Glucose (74-99) mg/dL POC Glucose (mg/dL) 202 H (75-99) mg/dL Hemoglobin A1c (4.0-6.0) % AST (14-36) U/L ALT (9-52) U/L Total Protein (6.3-8.2) g/dL Albumin (3.5-5.0) g/dL Assessment and Plan Assessment: #1 acute non-ST elevation myocardial infarction #2 successful stent placement of the LAD and intermediate lesion in the circumflex #3 ischemic cardiomyopathy with an ejection fraction of 30 of 35% #4 significant history of smoking #5 diabetes type 2 #6 hypertension #7 dyslipidemia Plan: From cardiology's perspective, we will optimize medical therapy. We'll add STEPHANIE inhibitor and Aldactone. We will monitor H and renal function. We will continue to follow the patient provide further recommendations accordingly. PER DIEM note has been reviewed, I agree with a documented findings and plan of care. Patient was seen and examined.
[2018-05-17 16:50] LABS: Glucose,Whole Blood 311 mg/dL (75-99)
[2018-05-17] MEDS: SPIRONOLACTONE 25 MG TAB PO SCH (17:20)
[2018-05-17] MEDS: LISINOPRIL 2.5 MG TAB PO SCH (17:20)
[2018-05-17] MEDS: HEPARIN SOD,PORK IN 0.45% NACL 25,000 UNIT in 0.45% NACL 1 500ML.BAG IV SCH (20:09)
[2018-05-17] MEDS ORDERED: ATORVASTATIN 20 MG TAB PO SCH (21:00)
[2018-05-17 21:04] LABS: Glucose,Whole Blood 291 mg/dL (75-99)
[2018-05-18] MEDS: SODIUM CHLORIDE 0.9% 1,000 ML IV SCH ×2 (04:40→11:59)
[2018-05-18 06:21] LABS: Basophils % (A) 1 %; Eosinophils # (A) 0.3 k/uL (0-0.7); Eosinophils % (A) 4 %; HCT 34.9 % (34.0-46.0); HGB 11.6 gm/dL (11.4-16.0); Lymphocytes # (A) 1.9 k/uL (1.0-4.8); Lymphocytes % (A) 27 %; MCH 30.8 pg (25.0-35.0); MCHC 33.3 g/dL (31.0-37.0); MCV 92.5 fL (80.0-100.0); Mean Platelet Volume 6.9; Monocytes # (A) 0.6 k/uL (0-1.0); Monocytes % (A) 8 %; Neutrophils # (A) 4.2 k/uL (1.3-7.7); Neutrophils % (A) 59 %; Platelet Count 315 k/uL (150-450); RBC 3.78 m/uL (3.80-5.40); RDW 13.7 % (11.5-15.5); WBC 7.1 k/uL (3.8-10.6)
[2018-05-18] MEDS: INSULIN ASPART 100 UNIT/ML 1 ML 10 ML VIAL SQ SCH ×2 (06:37→12:06)
[2018-05-18 06:41] LABS: ALT 66 U/L (9-52); AST 30 U/L (14-36); Albumin 2.9 g/dL (3.5-5.0); Alkaline Phosphatase 48 U/L (38-126); Anion Gap 5 mmol/L; Blood Urea Nitrogen 15 mg/dL (7-17); Calcium 8.6 mg/dL (8.4-10.2); Carbon Dioxide 25 mmol/L (22-30); Chloride 112 mmol/L (98-107); Glucose 120 mg/dL (74-99); Potassium 4.2 mmol/L (3.5-5.1); Sodium 142 mmol/L (137-145); Total Bilirubin 0.8 mg/dL (0.2-1.3); Total Protein 4.7 g/dL (6.3-8.2)
[2018-05-18 06:47] LABS: Glucose,Whole Blood 124 mg/dL (75-99)
[2018-05-18] MEDS: ACETAMINOPHEN TAB 325 MG TAB PO PRN (06:56)
[2018-05-18] MEDS: LISINOPRIL 2.5 MG TAB PO SCH (08:23)
[2018-05-18] MEDS: FAMOTIDINE 20 MG TAB PO SCH (08:23)
[2018-05-18] MEDS: CLOPIDOGREL 75 MG TAB PO SCH (08:23)
[2018-05-18] MEDS: ASPIRIN 325 MG TAB PO SCH (08:23)
[2018-05-18] MEDS: SPIRONOLACTONE 25 MG TAB PO SCH (08:24)
[2018-05-18] MEDS: METOPROLOL TARTRATE 25 MG TAB PO SCH (08:24)
[2018-05-18 10:13] VITALS: RESP 18
[2018-05-18 11:49] LABS: Glucose,Whole Blood 297 mg/dL (75-99)
[2018-05-18 13:05] VITALS: BP 115/67; PULSE 60; TEMP 97.3
--- NOTE | 2018-05-18 14:29 | P.PN ---
Subjective Progress Note Date: 05/18/18 Principal diagnosis: NSTEMI Is a pleasant 62-year-old female patient with a past medical history significant for diabetes, hypertension, dyslipidemia and smoking. Presented to the emergency department complaining of chest discomfort for about 4 days. The discomfort was only with exertion and better with resting. EKG showed sinus rhythm with T-wave inversion throughout the chest leads and troponin elevation was indicative of non-ST elevation [place]. He subsequently underwent cardiac catheterization by Dr. Casas which showed mild disease involving the RCA, intermediate disease involving the OM branch of the left circumflex which appeared to be in the range of 50-60% and a critical lesion involving the proximal LAD with plaque rupture and thrombosis formation for which she underwent successful stenting. Echocardiogram with Doppler showed moderate to severely impaired LV systolic function with an ejection fraction of 30-35% with septal and apical hypokinesis and mild MR. Patient was started on lisinopril and aldactone yesterday and is tolerating this well. Upon examination, patient is resting comfortably in bed. She denies further complaints of chest discomfort. She's been up ambulating to the bathroom without difficulties. Objective - Vital Signs Vital signs: Vital Signs Temp 97.4 F L 05/18/18 08:00 Pulse 69 05/18/18 08:00 Resp 18 05/18/18 08:00 BP 112/62 05/18/18 08:00 Pulse Ox 93 L 05/18/18 08:00 Intake & Output 05/17/18 05/18/18 05/18/18 18:59 06:59 18:59 Intake Total 480 300 480 Balance 480 300 480 Weight 48.7 kg 47.3 kg Intake: Oral 480 300 480 Other: Voiding Method Bedside Commode Toilet Toilet # Voids 2 2 # Bowel Movements 0 - Exam PHYSICAL EXAMINATION: HEENT: Head is atraumatic, normocephalic. Pupils equal, round. Neck is supple. There is no elevated jugular venous pressure. HEART EXAMINATION: Heart sounds regular, S1 and S2 normal. No murmur or gallop heard. CHEST EXAMINATION: Lungs are clear to auscultation and precussion. No chest wall tenderness is noted on palpation or with deep breathing. ABDOMEN: Soft, nontender. Bowel sounds are heard. No organomegaly noted. EXTREMITIES: 2+ peripheral pulses with no evidence of peripheral edema and no calf tenderness noted. Right femoral puncture site soft without ecchymosis or hematoma.. NEUROLOGIC patient is awake, alert and oriented x3. . - Labs CBC & Chem 7: 05/18/18 05:55 05/18/18 05:55 Labs: Abnormal Lab Results - Last 24 Hours (Table) 05/17/18 05/17/18 05/17/18 Range/Units 11:48 16:49 21:02 RBC (3.80-5.40) m/uL Chloride (98-107) mmol/L Glucose (74-99) mg/dL POC Glucose (mg/dL) 202 H 311 H 291 H (75-99) mg/dL ALT (9-52) U/L Total Protein (6.3-8.2) g/dL Albumin (3.5-5.0) g/dL 05/18/18 05/18/18 05/18/18 Range/Units 05:55 05:55 06:24 RBC 3.78 L (3.80-5.40) m/uL Chloride 112 H (98-107) mmol/L Glucose 120 H (74-99) mg/dL POC Glucose (mg/dL) 124 H (75-99) mg/dL ALT 66 H (9-52) U/L Total Protein 4.7 L (6.3-8.2) g/dL Albumin 2.9 L (3.5-5.0) g/dL Assessment and Plan Assessment: #1 acute non-ST elevation myocardial infarction #2 successful stent placement of the LAD and intermediate lesion in the circumflex #3 ischemic cardiomyopathy with an ejection fraction of 30 of 35% #4 significant history of smoking #5 diabetes type 2 #6 hypertension #7 dyslipidemia Plan: From cardiology's perspective, we will continue aldactone, lisinopril, metoprolol, aspirin, plavix and lipitor. Increase patient's activity. If she tolerates increased activity may discharge today. She will follow-up with Dr. Casas in one week. INDUSTRIAL AUTOMATION SPECIALIST note has been reviewed, I agree with a documented findings and plan of care. Patient was seen and examined.
--- NOTE | 2018-05-18 15:18 | P.DS ---
Providers Date of admission: 05/15/18 20:10 Expected date of discharge: 05/18/18 Attending physician: Gretchen Che Consults: 05/15/18 20:10 Consult Physician Stat Consulting Provider: Bryson Wilkinson Consult Reason/Comments: NSTEMI Do you want consulting provider notified?: Already Contacted 05/16/18 15:28 Consult Physician Routine Consulting Provider: [facility] Consult Reason/Comments: Post Interventional patient Do you want consulting provider notified?: Already Contacted Primary care physician: Fernanda Villalba [facility] Course: Discharge diagnosis 1. Acute non-ST elevated myocardial infarction present on admission: Patient scheduled for heart catheterization this afternoon. Patient underwent heart catheterization yesterday and received a stent to proximal LAD. Patient was started on Plavix 75 mg and aspirin 325. Lopressor 25 mg twice a day cardiology also added an STEPHANIE inhibitor and Aldactone. 2. Diabetes mellitus type 2 with episodes of hypoglycemia likely related to patient's nothing by mouth status. We'll hold patient's metformin and Tresiba. Continue to monitor blood sugars and sliding scale if needed. Patient was given a sandwich this morning per cardiology. Continue to monitor glucose levels. Patient is now having hypoglycemia likely related to the diet. And unable to get Tresiba here in the hospital. She can resume her home medications at the time of discharge 3. Nicotine dependence: Discussed smoking cessation for greater than 3 minutes. Patient refusing nicotine patch 4. Hyperlipidemia. Patient's Lipitor has been increased to 20 mg this admission 5. Elevated liver enzymes possibly due to increase in Lipitor dose. AST 51, ALT 69. Recheck LFTs showing improvement AST is 30 and ALT 66. We'll continue with the current dose of Lipitor 20 mg daily. We'll have her recheck LFTs in 1 week Hospital course This is a 62-year-old female, patient of Dr. Villalba. She has a known past medical history of nicotine dependence, diabetes mellitus and hyperlipidemia. Patient reports having episodes of chest pain intermittently over the last 3-4 days. She reports that the pain has radiated up into both shoulders bilaterally and down into the left upper arm. Chest pain was worse with activity. Pain was relieved with sitting. She denies any shortness of breath, nausea or diaphoresis with the chest pain. She does admit to feeling dizzy and lightheaded. She initially went to her PCP office because of the chest pain. EKG was done there and was reported to be abnormal and patient was told to go to the emergency room for further evaluation and treatment. Patient was found to have an acute non-ST elevated myocardial infarction. Troponins on admission 0.890, 1.910, 1.820. She's been seen and evaluated by cardiology she's currently on IV heparin and nitroglycerin drip. She is scheduled for a heart catheterization this afternoon. Patient has been having episodes of hypotension. Chest x-ray was negative. EKG shows normal sinus rhythm, septal infarct age undetermined and T-wave abnormality consider anterior lateral ischemia. Patient does have a mother who had open heart surgery at an older age. She denies any fevers chills or sweats. Denies any nausea vomiting bowel movement changes or urinary symptoms. On 05/17/2018 patient underwent a cardiac catheterization yesterday and received a stent to the proximal LAD. Patient was started on Plavix 75 mg daily and aspirin 325 daily. Patient was also started on Lopressor 25 mg twice a day. Patient is anxious to get home. Per nursing staff, cardiology services would like to hold off on discharge until tomorrow due to management of medications. Denies chest pain or shortness breath at this time. Liver enzymes also trending up at this time. AST 51, ALT 69. Patient's home Lipitor has been increased to 20 mg this admission. We'll recheck labs tomorrow. Patient will need close follow-up outpatient. 05/18/2018 patient is no longer having any chest pain. She has been seen evaluated by cardiology and is clear for discharge. Prescriptions for the new cardiac medications have been ordered. Patient is medically stable for discharge. She'll following up with cardiology in her PCP in 1 week. Continue to monitor liver functions in the outpatient setting. She seems to be tolerating the Lipitor at this point. Her echo did show an EF of 30-35% with wall motion abnormality in these findings are secondary to her [place]. I performed an examination of the patient and discussed their management with the physician Coin Counter And Wrapper. I have reviewed the Physician Coin Counter And Wrapper's notes and agree with the documented findings and plan of care Patient Condition at Discharge: Stable Plan - Discharge Summary Discharge Rx Participant: No New Discharge Prescriptions: New Aspirin 325 mg PO DAILY #30 tab Atorvastatin [Lipitor] 20 mg PO HS #30 tab Clopidogrel [Plavix] 75 mg PO DAILY #30 tab Lisinopril [Zestril] 2.5 mg PO DAILY #30 tab Metoprolol Tartrate [Lopressor] 25 mg PO BID #60 tab Spironolactone [Aldactone] 25 mg PO DAILY #30 tab Continue metFORMIN HCL [Glucophage] 500 mg PO DAILY Naproxen 500 mg PO Q12HR PRN PRN Reason: Pain Cyanocobalamin (Vitamin B-12) [Vitamin B-12] 1,000 mcg PO DAILY Cholecalciferol [Vitamin D3] 1,000 unit PO DAILY Insulin Degludec [Tresiba Flextouch U-200] 26 unit SQ DAILY Discontinued Atorvastatin [Lipitor] 10 mg PO HS Discharge Medication List Naproxen 500 mg PO Q12HR PRN 10/03/16 [History] metFORMIN HCL [Glucophage] 500 mg PO DAILY 10/03/16 [History] Cholecalciferol [Vitamin D3] 1,000 unit PO DAILY 05/15/18 [History] Cyanocobalamin (Vitamin B-12) [Vitamin B-12] 1,000 mcg PO DAILY 05/15/18 [ History] Insulin Degludec [Tresiba Flextouch U-200] 26 unit SQ DAILY 05/15/18 [History] Aspirin 325 mg PO DAILY #30 tab 05/18/18 [Rx] Atorvastatin [Lipitor] 20 mg PO HS #30 tab 05/18/18 [Rx] Clopidogrel [Plavix] 75 mg PO DAILY #30 tab 05/18/18 [Rx] Lisinopril [Zestril] 2.5 mg PO DAILY #30 tab 05/18/18 [Rx] Metoprolol Tartrate [Lopressor] 25 mg PO BID #60 tab 05/18/18 [Rx] Spironolactone [Aldactone] 25 mg PO DAILY #30 tab 05/18/18 [Rx] Follow up Appointment(s)/Referral(s): Jesús Casas MD [STAFF PHYSICIAN] - 05/25/18 10:15 am () Fernanda Villalba MD [Primary Care Provider] - 05/25/18 1:45 am Patient Instructions/Handouts: *Surgery [facility] - After Heart Catheterization - [employer] Architect Instructions, Myocardial Infarction (DC), Heart Healthy Diet (DC ), Coronary Intravascular Stent Placement (DC) Activity/Diet/Wound Care/Special Instructions: Diet: cardiac Activity: as tolerated Discharge Disposition: HOME SELF-CARE
== END 2018-05-18 17:25 | disposition home or self-care (01) | DRG 247 ==
LOC: EC 16:47 → 6SEL 20:10
PROVIDERS: ADMIT Internal Medicine; ATTEND Internal Medicine
PROC: B211YZZ Fluoroscopy of Multiple Coronary Arteries using Other Contrast (ICD-10-PCS; 2018-05-16)
PROC: 027034Z Dilation of Coronary Artery, One Artery with Drug-eluting Intraluminal Device, Percutaneous Approach (ICD-10-PCS; principal; 2018-05-16 14:15)
PROC: 4A023N7 Measurement of Cardiac Sampling and Pressure, Left Heart, Percutaneous Approach (ICD-10-PCS; 2018-05-16 14:15)
DX: I21.4 Non-ST elevation (NSTEMI) myocardial infarction (principal); I95.9 Hypotension, unspecified; E11.649 Type 2 diabetes mellitus with hypoglycemia without coma; I25.5 Ischemic cardiomyopathy; E78.00 Pure hypercholesterolemia, unspecified; E78.5 Hyperlipidemia, unspecified; I10 Essential (primary) hypertension; I25.10 Atherosclerotic heart disease of native coronary artery without angina pectoris; R94.5 Abnormal results of liver function studies; T46.6X5A Adverse effect of antihyperlipidemic and antiarteriosclerotic drugs, initial encounter; F41.9 Anxiety disorder, unspecified; F17.200 Nicotine dependence, unspecified, uncomplicated; Z71.6 Tobacco abuse counseling; Z79.4 Long term (current) use of insulin; Z79.1 Long term (current) use of non-steroidal anti-inflammatories (NSAID); Z79.899 Other long term (current) drug therapy; Z90.49 Acquired absence of other specified parts of digestive tract; Z98.51 Tubal ligation status; Z88.6 Allergy status to analgesic agent; Z82.49 Family history of ischemic heart disease and other diseases of the circulatory system; Z83.3 Family history of diabetes mellitus; Z80.9 Family history of malignant neoplasm, unspecified
CPT/HCPCS: 36415; 71046; 80053; 82550; 82553; 83036; 83735; 83880; 84484; 85025; 85610; 85730; 93005; 93306; 93458; 96365; 96366; 96368; 96376; 99285

== ENCOUNTER 2023-02-06 19:17 | Inpatient (IN) | payer MEDICARE, OTHER ==
[2023-02-06 19:49] LABS: Glucose,Whole Blood 493 mg/dL (70-110)
[2023-02-06] MEDS ORDERED: ONDANSETRON 4 MG/2 ML VIAL IVP STA (20:00)
[2023-02-06] MEDS ORDERED: SODIUM CHLORIDE 0.9% 1,000 ML IV STA (20:00)
--- NOTE | 2023-02-06 20:00 | ED ---
Abdominal Pain HPI - General Chief Complaint: Abdominal Pain Stated Complaint: Vomiting, Hyperglycemia Time Seen by Provider: 02/06/23 19:38 Source: patient Mode of arrival: ambulatory Limitations: no limitations - History of Present Illness Initial Comments: 67 year old female past history of diabetes who presents to the emergency room reporting nausea, vomiting and elevated glucose. She reports that she has not been able to hold down any solid foods since Tuesday. She started a new medication on Tuesday after she saw her primary care. It is a once weekly injection for diabetes. States that ever since she started this medication and she has felt extremely nauseated. She has had numerous episodes of vomiting. She denies any fevers. No sick contacts. She is in her primary care office yesterday and they gave her an antiemedic injection. She was told to no longer continue taking the medication. States that she continues to have symptoms. No chest pain, shortness breath or cough. Admits to generalized abdominal pain. She did take her short acting insulin twice today. No other alleviating, Perceptin or modifying factors - Related Data Home Medications Medication Instructions Recorded Confirmed metFORMIN HCL [Glucophage] 500 mg PO BID 10/03/16 02/06/23 Cyanocobalamin (Vitamin B-12) 1,000 mcg PO DAILY 05/15/18 02/06/23 [Vitamin B-12] Insulin Degludec [Tresiba 24 - 30 unit SQ DAILY 05/15/18 02/06/23 Flextouch U-200 Pen] Atorvastatin Calcium [Lipitor] 80 mg PO HS 02/06/23 02/06/23 Cholecalciferol [Vitamin D3 (25 25 mcg PO DAILY 02/06/23 02/06/23 Mcg = 1000 Iu)] Insulin Aspart [NovoLOG Flexpen] See Protocol SQ AC-TID 02/06/23 02/06/23 Magnesium Oxide [Mag-Ox] 400 mg PO HS 02/06/23 02/06/23 ondansetron HCL [Zofran] 8 mg PO Q8HR PRN 02/06/23 02/06/23 Previous Rx's Medication Instructions Recorded Metoprolol Tartrate [Lopressor] 25 mg PO BID #60 tab 05/18/18 Spironolactone [Aldactone] 25 mg PO DAILY #30 tab 05/18/18 lisinopriL [Zestril] 2.5 mg PO DAILY #30 tab 05/18/18 Metoclopramide [Reglan] 5 mg PO Q6H PRN #30 tab 02/08/23 polyethylene glycoL 3350 [Miralax] 17 gm PO DAILY packet 02/08/23 Omeprazole [PriLOSEC] 40 mg PO DIRECTED #35 cap 02/09/23 Allergies Allergy/AdvReac Type Severity Reaction Status Date / Time No Known Allergies Allergy Verified 02/06/23 20:46 Review of Systems ROS Statement: Those systems with pertinent positive or pertinent negative responses have been documented in the HPI. ROS Other: All systems not noted in ROS Statement are negative. Past Medical History Past Medical History: Diabetes Mellitus Additional Past Medical History / Comment(s): hypercholestremia History of Any Multi-Drug Resistant Organisms: None Reported Past Surgical History: Appendectomy, Cholecystectomy Additional Past Surgical History / Comment(s): tubal ligation, Past Anesthesia/Blood Transfusion Reactions: No Reported Reaction Past Psychological History: No Psychological Hx Reported Smoking Status: Never smoker Past Alcohol Use History: None Reported Past Drug Use History: None Reported - Past Family History Father Family Medical History: Cancer Mother Family Medical History: Cancer, Coronary Artery Disease (CAD), Diabetes Mellitus, Myocardial Infarction ([place]) General Exam Limitations: no limitations General appearance: alert, in no apparent distress Head exam: Present: atraumatic, normocephalic, normal inspection Eye exam: Present: normal appearance, PERRL, EOMI. Absent: scleral icterus, conjunctival injection, periorbital swelling ENT exam: Present: normal exam, mucous membranes moist Neck exam: Present: normal inspection. Absent: tenderness, meningismus, ly mphadenopathy Respiratory exam: Present: normal lung sounds bilaterally. Absent: respiratory distress, wheezes, rales, rhonchi, stridor Cardiovascular Exam: Present: normal rhythm, tachycardia, normal heart sounds. Absent: systolic murmur, diastolic murmur, rubs, gallop, clicks GI/Abdominal exam: Present: soft, normal bowel sounds. Absent: distended, tenderness, guarding, rebound, rigid Extremities exam: Present: normal inspection, full ROM, normal capillary refill. Absent: tenderness, pedal edema, joint swelling, calf tenderness Back exam: Present: normal inspection Neurological exam: Present: alert, oriented X3, CN II-XII intact Psychiatric exam: Present: normal affect, normal mood Skin exam: Present: warm, dry, intact, normal color. Absent: rash Course Vital Signs 02/06/23 02/06/23 02/06/23 19:31 21:37 23:11 Temperature 97.4 F L Pulse Rate 121 H 120 H 122 H Pulse Rate [ Hosiery Knitter ] Respiratory 24 18 18 Rate Blood Pressure 135/81 126/72 149/86 Blood Pressure [Right Arm] O2 Sat by Pulse 97 99 99 Oximetry 02/07/23 02/07/23 02/07/23 00:34 02:23 03:30 Temperature Pulse Rate 120 H 113 H 109 H Pulse Rate [ Hosiery Knitter ] Respiratory 18 18 16 Rate Blood Pressure 149/71 149/71 137/65 Blood Pressure [Right Arm] O2 Sat by Pulse 97 98 97 Oximetry 02/07/23 02/07/23 02/07/23 05:31 07:11 08:00 Temperature 97.6 F Pulse Rate 101 H 95 Pulse Rate [ 98 Hosiery Knitter ] Respiratory 18 16 16 Rate Blood Pressure 155/69 160/80 Blood Pressure 136/62 [Right Arm] O2 Sat by Pulse 97 96 98 Oximetry 02/07/23 08:17 Temperature 98.4 F Pulse Rate 100 Pulse Rate [ Hosiery Knitter ] Respiratory 16 Rate Blood Pressure 154/74 Blood Pressure [Right Arm] O2 Sat by Pulse 99 Oximetry Medical Decision Making - Medical Decision Making Was pt. sent in by a medical professional or institution (, PA, LOCOMOTIVE OPERATOR, urgent care, hospital, or longterm...) When possible be specific @ -No Did you speak to anyone other than the patient for history (EMS, parent, family, police, friend...)? What history was obtained from this source @ -the patients son Did you review nursing and triage notes (agree or disagree)? Why? @ -I reviewed and agree with nursing and triage notes Were old charts reviewed (outside hosp., previous admission, EMS record, old EKG, old radiological studies, urgent care reports/EKG's, longterm records)? Report findings @ -No old charts were reviewed Differential Diagnosis (chest pain, altered mental status, abdominal pain women, abdominal pain men, vaginal bleeding, weakness, fever, dyspnea, syncope, headache, dizziness, GI bleed, back pain, seizure, CVA, palpatations, mental health, musculoskeletal)? @ -dka, hyperglycemia, medication side effect, nausea and vomiting EKG interpreted by me (3pts min.). @ -yes X-rays interpreted by me (1pt min.). @ -no CT interpreted by me (1pt min.). @ -yes U/S interpreted by me (1pt. min.). @ -None done What testing was considered but not performed or refused? (CT, X-rays, U/S, l abs)? Why? @ -None What meds were considered but not given or refused? Why? @ -None Did you discuss the management of the patient with other professionals (professionals i.e. DrBriseida, PA, LOCOMOTIVE OPERATOR, lab, RT, psych nurse, high school social studies teacher, wedding coordinator, teacher, air intelligence officer, window caser)? Give summary @ -Dr. Herzog Was smoking cessation discussed for >3mins.? @ -No Was critical care preformed (if so, how long)? @ -yes, 35 minutes for insulin gtt Were there social determinants of health that impacted care today? How? (Homel essness, low income, unemployed, alcoholism, drug addiction, transportation, low edu. Level, literacy, decrease access to med. care, [facility], rehab)? @ -No Was there de-escalation of care discussed even if they declined (Discuss DNR or withdrawal of care, Hospice)? DNR status @ -No What co-morbidities impacted this encounter? (DM, HTN, Smoking, COPD, CAD, Cancer, CVA, ARF, Chemo, Hep., AIDS, mental health diagnosis, sleep apnea, morbid obesity)? @ -DM Was patient admitted / discharged? Hospital course, mention meds given and route, prescriptions, significant lab abnormalities, going to OR and other pertinent info. @ -Upon arrival patient was placed into room 7. There are history of physical exam is performed. IV access established. Patient is given a 1 L bolus of normal saline. Laboratory studies were conducted and reviewed. White count 27. Glucose 466. Lactic acid 3.3. Acetone is positive. Anion gap 29. CO2 13. Imaging demonstrates circumferential distal esophageal thickening. Patient is initiated on insulin drip. Recommended admission to the hospital for DKA. Spoke with Dr. Herzog who agreed to admit the patient. Undiagnosed new problem with uncertain prognosis? @ -Yes Drug Therapy requiring intensive monitoring for toxicity (Heparin, Nitro, Insulin, Cardizem)? @ -No Were any procedures done? @ -No Diagnosis/symptom? @ -acute nausea and vomiting, acute dka Acute, or Chronic, or Acute on Chronic? @ -acute Uncomplicated (without systemic symptoms) or Complicated (systemic symptoms)? @ -complicated Side effects of treatment? @ -hypoglycemia Exacerbation, Progression, or Severe Exacerbation? @ -No Poses a threat to life or bodily function? How? (Chest pain, [place], [place], pneumonia, PE, COPD, DKA, ARF, appy, cholecystitis, CVA, Diverticulitis, Homicidal, Suicidal, threat to staff... and all critical care pts) @ -yes - Lab Data Result diagrams: 02/10/23 06:05 02/10/23 06:05 Lab Results 02/06/23 02/06/23 02/06/23 Range/Units 19:46 20:14 20:14 WBC 27.0 H (3.8-10.6) k/uL RBC 4.86 (3.80-5.40) m/uL Hgb 15.1 (11.4-16.0) gm/dL Hct 45.3 (34.0-46.0) % MCV 93.2 (80.0-100.0) fL MCH 31.0 (25.0-35.0) pg MCHC 33.3 (31.0-37.0) g/dL RDW 12.7 (11.5-15.5) % Plt Count 427 (150-450) k/uL MPV 7.5 Neutrophils % 86 % Lymphocytes % 5 % Monocytes % 8 % Eosinophils % 0 % Basophils % 0 % Neutrophils # 23.3 H (1.3-7.7) k/uL Lymphocytes # 1.3 (1.0-4.8) k/uL Monocytes # 2.2 H (0-1.0) k/uL Eosinophils # 0.0 (0-0.7) k/uL Basophils # 0.1 (0-0.2) k/uL Sodium 126 L (137-145) mmol/L Potassium 4.8 (3.5-5.1) mmol/L Chloride 84 L (98-107) mmol/L Carbon Dioxide 13 L (22-30) mmol/L Anion Gap 29 mmol/L BUN 39 H (7-17) mg/dL Creatinine 1.33 H (0.52-1.04) mg/dL Est GFR (CKD-EPI)AfAm 48 (>60 ml/min/1.73 sqM) Est GFR (CKD-EPI)NonAf 41 (>60 ml/min/1.73 sqM) Glucose 466 H (74-99) mg/dL POC Glucose (mg/dL) 493 H (70-110) mg/dL POC Glu Elevator Constructor LAWRENCE Demetrio Moeller Estimated Ave Glu mg/dL Hemoglobin A1c (0.0-6.0) % Lactic Ac Sepsis Rflx Plasma Lactic Acid Romeo (0.7-2.0) mmol/L Calcium 9.7 (8.4-10.2) mg/dL Magnesium 1.8 (1.6-2.3) mg/dL Total Bilirubin 2.4 H (0.2-1.3) mg/dL AST 27 (14-36) U/L ALT 33 (4-34) U/L Alkaline Phosphatase 77 (38-126) U/L Troponin I (0.000-0.034) ng/mL Total Protein 7.4 (6.3-8.2) g/dL Albumin 5.0 (3.5-5.0) g/dL Lipase 20 L (23-300) U/L Acetone, Qual Positive (Negative) 02/06/23 02/06/23 02/06/23 Range/Units 20:14 20:14 20:14 WBC (3.8-10.6) k/uL RBC (3.80-5.40) m/uL Hgb (11.4-16.0) gm/dL Hct (34.0-46.0) % MCV (80.0-100.0) fL MCH (25.0-35.0) pg MCHC (31.0-37.0) g/dL RDW (11.5-15.5) % Plt Count (150-450) k/uL MPV Neutrophils % % Lymphocytes % % Monocytes % % Eosinophils % % Basophils % % Neutrophils # (1.3-7.7) k/uL Lymphocytes # (1.0-4.8) k/uL Monocytes # (0-1.0) k/uL Eosinophils # (0-0.7) k/uL Basophils # (0-0.2) k/uL Sodium (137-145) mmol/L Potassium (3.5-5.1) mmol/L Chloride (98-107) mmol/L Carbon Dioxide (22-30) mmol/L Anion Gap mmol/L BUN (7-17) mg/dL Creatinine (0.52-1.04) mg/dL Est GFR (CKD-EPI)AfAm (>60 ml/min/1.73 sqM) Est GFR (CKD-EPI)NonAf (>60 ml/min/1.73 sqM) Glucose (74-99) mg/dL POC Glucose (mg/dL) (70-110) mg/dL POC Glu Elevator Constructor ID Estimated Ave Glu mg/dL 233 Hemoglobin A1c 9.7 H (0.0-6.0) % Lactic Ac Sepsis Rflx Plasma Lactic Acid Romeo 3.3 H* (0.7-2.0) mmol/L Calcium (8.4-10.2) mg/dL Magnesium (1.6-2.3) mg/dL Total Bilirubin (0.2-1.3) mg/dL AST (14-36) U/L ALT (4-34) U/L Alkaline Phosphatase (38-126) U/L Troponin I <0.012 (0.000-0.034) ng/mL Total Protein (6.3-8.2) g/dL Albumin (3.5-5.0) g/dL Lipase (23-300) U/L Acetone, Qual (Negative) 02/06/23 Range/Units 21:26 WBC (3.8-10.6) k/uL RBC (3.80-5.40) m/uL Hgb (11.4-16.0) gm/dL Hct (34.0-46.0) % MCV (80.0-100.0) fL MCH (25.0-35.0) pg MCHC (31.0-37.0) g/dL RDW (11.5-15.5) % Plt Count (150-450) k/uL MPV Neutrophils % % Lymphocytes % % Monocytes % % Eosinophils % % Basophils % % Neutrophils # (1.3-7.7) k/uL Lymphocytes # (1.0-4.8) k/uL Monocytes # (0-1.0) k/uL Eosinophils # (0-0.7) k/uL Basophils # (0-0.2) k/uL Sodium (137-145) mmol/L Potassium (3.5-5.1) mmol/L Chloride (98-107) mmol/L Carbon Dioxide (22-30) mmol/L Anion Gap mmol/L BUN (7-17) mg/dL Creatinine (0.52-1.04) mg/dL Est GFR (CKD-EPI)AfAm (>60 ml/min/1.73 sqM) Est GFR (CKD-EPI)NonAf (>60 ml/min/1.73 sqM) Glucose (74-99) mg/dL POC Glucose (mg/dL) (70-110) mg/dL POC Glu Elevator Constructor ID Estimated Ave Glu mg/dL Hemoglobin A1c (0.0-6.0) % Lactic Ac Sepsis Rflx Y Plasma Lactic Acid Romeo (0.7-2.0) mmol/L Calcium (8.4-10.2) mg/dL Magnesium (1.6-2.3) mg/dL Total Bilirubin (0.2-1.3) mg/dL AST (14-36) U/L ALT (4-34) U/L Alkaline Phosphatase (38-126) U/L Troponin I (0.000-0.034) ng/mL Total Protein (6.3-8.2) g/dL Albumin (3.5-5.0) g/dL Lipase (23-300) U/L Acetone, Qual (Negative) - EKG Data EKG Comments: EKG demonstrates sinus tachycardia with a rate of 118. ME interval 104. QRS 82. QTC of 410. No acute ST segment elevations or depressions. No signs of Jkwhw-[id number]-Xarex or Brugada Critical Care Time Critical Care Time: Yes Critical Care Time: 35 minutes Disposition Clinical Impression: DKA (diabetic ketoacidosis), Nausea and vomiting Disposition: ADMITTED IP TO THIS [facility] Condition: Stable Is patient prescribed a controlled substance at d/c from ED?: No Time of Disposition: 22:09 Decision to Admit Reason: Admit from EC Decision Date: 02/06/23 Decision Time: 22:09
[2023-02-06 21:06] LABS: ALT 33 U/L (4-34); AST 27 U/L (14-36); African American GFR (CKD) 48 (>60 ml/min/1.73 sqM); Alkaline Phosphatase 77 U/L (38-126); Anion Gap 29 mmol/L; Blood Urea Nitrogen 39 mg/dL (7-17); Calcium 9.7 mg/dL (8.4-10.2); Carbon Dioxide 13 mmol/L (22-30); Chloride 84 mmol/L (98-107); Glucose 466 mg/dL (74-99); Lipase 20 U/L (23-300); Non-African American GFR(CKD) 41 (>60 ml/min/1.73 sqM); Potassium 4.8 mmol/L (3.5-5.1); Sodium 126 mmol/L (137-145); Total Bilirubin 2.4 mg/dL (0.2-1.3); Total Protein 7.4 g/dL (6.3-8.2)
[2023-02-06 21:08] LABS: Basophils # (A) 0.1 k/uL (0-0.2); Basophils % (A) 0 %; Eosinophils % (A) 0 %; HCT 45.3 % (34.0-46.0); HGB 15.1 gm/dL (11.4-16.0); Lymphocytes # (A) 1.3 k/uL (1.0-4.8); Lymphocytes % (A) 5 %; MCHC 33.3 g/dL (31.0-37.0); MCV 93.2 fL (80.0-100.0); Mean Platelet Volume 7.5; Monocytes # (A) 2.2 k/uL (0-1.0); Monocytes % (A) 8 %; Neutrophils # (A) 23.3 k/uL (1.3-7.7); Neutrophils % (A) 86 %; Platelet Count 427 k/uL (150-450); RBC 4.86 m/uL (3.80-5.40); RDW 12.7 % (11.5-15.5)
--- NOTE | 2023-02-06 21:49 | CT ---
EXAMINATION TYPE: CT abdomen pelvis wo con CT DLP: 303.2 mGycm, Automated exposure control for dose reduction was used. DATE OF EXAM: 02/06/2023 9:35 PM COMPARISON: CT abdomen pelvis most recent from 12/04/2015 CLINICAL INDICATION:Female, 67 years old with history of abd pain; Abdominal pain, vomiting, hypergly cemia TECHNIQUE: Axial CT of the abdomen and pelvis. Sagittal and coronal reformats were created on a [employer] workstation. Contrast used: None Oral contrast used: without Oral Contrast FINDINGS: LOWER CHEST: Unremarkable ABDOMEN LIVER: Unremarkable GALLBLADDER AND BILE DUCTS: The gallbladder is surgically absent. PANCREAS: Unremarkable. SPLEEN: Unremarkable. ADRENAL GLANDS: Unremarkable. KIDNEYS AND URETERS: The right renal sinus is positioned anteriorly. The collecting systems are simil ar prior in 2016. No evidence of hydronephrosis or renal calculus. The ureters are unremarkable. PELVIS BLADDER: Unremarkable REPRODUCTIVE: Unremarkable. ABDOMEN & PELVIS STOMACH AND BOWEL: Moderate hiatal hernia is present. Circumferential wall thickening of the distal e sophagus measuring up to 7 mm. No evidence of bowel obstruction. PERITONEUM/RETROPERITONEUM: No evidence of pneumoperitoneum or free fluid. VASCULATURE: Mild atherosclerotic calcifications are present throughout the abdominal aorta and its b ranches. No evidence of aortic aneurysm. MUSCULOSKELETAL: No acute osseous abnormalities LYMPH NODES: No gross evidence for lymphadenopathy. SOFT TISSUE/ABDOMINAL WALL: Unremarkable IMPRESSION: 1. No definitive evidence for acute intraluminal process on this noncontrast exam. 2. Moderate hiatal hernia. 3. Circumferential distal esophageal thickening correlate for esophagitis.
[2023-02-06 22:12] LABS: Glucose,Whole Blood 296 mg/dL (70-110)
[2023-02-06] MEDS ORDERED: INSULIN REGULAR 100 UNIT in SODIUM CHLORIDE 0.9% 100 ML IV SCH (22:15)
[2023-02-06] MEDS ORDERED: ONDANSETRON 4 MG/2 ML VIAL IVP PRN (22:16)
[2023-02-06 22:23] LABS: Magnesium 1.8 mg/dL (1.6-2.3)
[2023-02-06] MEDS: D5-0.45% NACL WITH KCL 20MEQ/L 1,000 ML IV SCH (23:00)
[2023-02-06 23:22] LABS: Glucose,Whole Blood 255 mg/dL (70-110)
[2023-02-07 00:16] LABS: Glucose,Whole Blood 235 mg/dL (70-110)
[2023-02-07 01:01] LABS: Potassium 4.3 mmol/L (3.5-5.1)
[2023-02-07 01:19] LABS: Glucose,Whole Blood 193 mg/dL (70-110)
[2023-02-07 02:24] LABS: Glucose,Whole Blood 175 mg/dL (70-110)
[2023-02-07 03:29] LABS: Glucose,Whole Blood 171 mg/dL (70-110)
[2023-02-07 05:11] LABS: Glucose,Whole Blood 137 mg/dL (70-110)
[2023-02-07 05:23] LABS: African American GFR (CKD) >90 (>60 ml/min/1.73 sqM); Anion Gap 12 mmol/L; Blood Urea Nitrogen 32 mg/dL (7-17); Carbon Dioxide 21 mmol/L (22-30); Chloride 95 mmol/L (98-107); Glucose 160 mg/dL (74-99); Non-African American GFR(CKD) 85 (>60 ml/min/1.73 sqM); Potassium 4.4 mmol/L (3.5-5.1); Sodium 128 mmol/L (137-145)
[2023-02-07] MEDS: D5-0.45% NACL WITH KCL 20MEQ/L 1,000 ML IV SCH ×4 (05:32→20:57)
[2023-02-07 06:31] LABS: Glucose,Whole Blood 139 mg/dL (70-110)
[2023-02-07 07:18] LABS: Glucose,Whole Blood 138 mg/dL (70-110)
[2023-02-07 08:18] LABS: Glucose,Whole Blood 163 mg/dL (70-110)
[2023-02-07] MEDS ORDERED: DEXTROSE 50% SYRINGE 50 ML IVP PRN ×2 (08:26)
[2023-02-07 09:42] LABS: Glucose,Whole Blood 148 mg/dL (70-110)
[2023-02-07] MEDS: METOPROLOL TARTRATE 25 MG TAB PO SCH ×2 (09:50→20:56)
[2023-02-07] MEDS: INSULIN DETEMIR (LEVEMIR) 100 UNIT/ML SYR SQ SCH (09:50)
[2023-02-07] MEDS: SPIRONOLACTONE 25 MG TAB PO SCH (09:50)
[2023-02-07 11:30] LABS: Glucose,Whole Blood 181 mg/dL (70-110)
[2023-02-07 13:23] VITALS: BMI 21.1
[2023-02-07] MEDS: INSULIN ASPART (NovoLOG) 100 UNIT/ML VIAL SQ SCH ×3 (13:31→20:11)
[2023-02-07 16:39] LABS: Glucose,Whole Blood 83 mg/dL (70-110)
[2023-02-07 19:59] LABS: Glucose,Whole Blood 55 mg/dL (70-110)
[2023-02-07 20:12] LABS: Glucose,Whole Blood 70 mg/dL (70-110)
[2023-02-07 20:34] LABS: Glucose,Whole Blood 105 mg/dL (70-110)
[2023-02-07] MEDS: ATORVASTATIN 80 MG TAB PO SCH (20:56)
[2023-02-08 05:56] LABS: Glucose,Whole Blood 168 mg/dL (70-110)
[2023-02-08] MEDS: INSULIN DETEMIR (LEVEMIR) 100 UNIT/ML SYR SQ SCH (06:18)
[2023-02-08] MEDS: INSULIN ASPART (NovoLOG) 100 UNIT/ML VIAL SQ SCH ×4 (06:19→20:39)
--- NOTE | 2023-02-08 08:25 | P.HPIM ---
History of Present Illness H&P Date: 02/07/23 Chief Complaint: n/v Janae Baca is a 67 yo F with PMH of T2DM, HTN who presented to the ED with nausea and vomiting over the past week and increasing malaise in the past few days. She states she was recently started on mounjaro for her DM but this medication caused her nausea and vomiting every day since she started it. She states she has not been able to keep food down. She denies hematemesis, diarrhea, fever, chills. She went to see her PCP over the weekend and was given a shot of zofran but that did not control her symptoms. On presentation pt tachycardic, WBC 27k, Na 126, Cr 1.3, glucose 500, lactic 3.3, anion gap 29. CT abd/pelvis no acute process. Review of Systems All systems: negative Constitutional: Reports malaise, Denies chills, Denies fever Eyes: denies blurred vision, denies pain Ears, nose, mouth and throat: Denies headache, Denies sore throat Cardiovascular: Denies chest pain, Denies shortness of breath Respiratory: Denies cough Gastrointestinal: Reports as per HPI, Reports abdominal pain, Reports bloating, Reports nausea, Reports vomiting, Denies diarrhea Genitourinary: Denies dysuria, Denies hematuria Musculoskeletal: Denies myalgias Integumentary: Denies pruritus, Denies rash Neurological: Denies numbness, Denies weakness Psychiatric: Denies anxiety, Denies depression Endocrine: Denies fatigue, Denies weight change Past Medical History Past Medical History: Diabetes Mellitus Additional Past Medical History / Comment(s): hypercholestremia Last Myocardial Infarction Date:: 2017 History of Any Multi-Drug Resistant Organisms: None Reported Past Surgical History: Appendectomy, Cholecystectomy Additional Past Surgical History / Comment(s): tubal ligation, Past Anesthesia/Blood Transfusion Reactions: No Reported Reaction Date of Last Stent Placement:: 2017 Past Psychological History: No Psychological Hx Reported Smoking Status: Never smoker Past Alcohol Use History: None Reported Past Drug Use History: None Reported - Past Family History Father Family Medical History: Cancer Mother Family Medical History: Cancer, Coronary Artery Disease (CAD), Diabetes Mellitus, Myocardial Infarction ([place]) Medications and Allergies Home Medications Medication Instructions Recorded Confirmed Type metFORMIN HCL [Glucophage] 500 mg PO BID 10/03/16 02/06/23 History Cyanocobalamin (Vitamin B-12) 1,000 mcg PO DAILY 05/15/18 02/06/23 History [Vitamin B-12] Insulin Degludec [Tresiba 24 - 30 unit SQ DAILY 05/15/18 02/06/23 History Flextouch U-200 Pen] Metoprolol Tartrate [Lopressor] 25 mg PO BID #60 tab 05/18/18 02/06/23 Rx Spironolactone [Aldactone] 25 mg PO DAILY #30 tab 05/18/18 02/06/23 Rx lisinopriL [Zestril] 2.5 mg PO DAILY #30 tab 05/18/18 02/06/23 Rx Atorvastatin Calcium [Lipitor] 80 mg PO HS 02/06/23 02/06/23 History Cholecalciferol [Vitamin D3 (25 25 mcg PO DAILY 02/06/23 02/06/23 History Mcg = 1000 Iu)] Insulin Aspart [NovoLOG Flexpen] See Protocol SQ AC-TID 02/06/23 02/06/23 History Magnesium Oxide [Mag-Ox] 400 mg PO HS 02/06/23 02/06/23 History ondansetron HCL [Zofran] 8 mg PO Q8HR PRN 02/06/23 02/06/23 History Allergies Allergy/AdvReac Type Severity Reaction Status Date / Time No Known Allergies Allergy Verified 02/06/23 20:46 Physical Exam Vitals: Vital Signs Temp Pulse Pulse Resp BP BP Pulse Ox 02/08/23 07:47 96.3 F L 81 19 156/68 98 02/08/23 04:00 98 F 81 16 147/76 97 02/08/23 02:00 81 14 02/08/23 00:00 98.2 F 81 14 155/70 98 02/07/23 20:00 98.1 F 94 14 138/73 99 02/07/23 16:00 90 18 137/88 100 02/07/23 12:00 88 18 123/58 98 02/07/23 08:17 98.4 F 100 16 154/74 99 Intake and Output 02/07/23 02/08/23 02/08/23 22:59 06:59 14:59 Intake Total 360 100 Balance 360 100 Intake: Oral 360 100 Other: Voiding Method Toilet Toilet # Voids 1 1 Gen: well developed, well nourished, NAD HEENT: NC/AT, mmm Neck: supple, no thyromegaly or JVD CV: RRR, no murmur Lungs: Normal effort, clear throughout Abd: soft, nontender, non distended Neuro: AAOx3, no focal deficit Skin: warm and dry Results CBC & Chem 7: 02/06/23 20:14 02/07/23 04:37 Labs: Abnormal Lab Results - Last 24 Hours (Table) 02/06/23 02/07/23 02/07/23 Range/Units 20:14 08:15 09:39 POC Glucose (mg/dL) 163 H 148 H (70-110) mg/dL Hemoglobin A1c 9.7 H (0.0-6.0) % 02/07/23 02/07/23 02/08/23 Range/Units 11:28 19:57 05:55 POC Glucose (mg/dL) 181 H 55 L 168 H (70-110) mg/dL Hemoglobin A1c (0.0-6.0) % Thrombosis Risk Factor Assmnt - Choose All That Apply Any of the Below Risk Factors Present?: No Each Risk Factor Represents 2 Points: Age 61-74 years Other congenital or acquired thrombophilia - If yes, enter type in comment: No Thrombosis Risk Factor Assessment Total Risk Factor Score: 2 Thrombosis Risk Factor Assessment Level: Low Risk Assessment and Plan Plan: DKA, secondary to intractable vomiting and new medication. Admit, IV fluids, start insulin drip. Zofran and reglan as needed for nausea. Transition to sq insulin today as AG closed and sugars under control HLD. Continue lipitor HTN. continue aldactone
[2023-02-08] MEDS: SPIRONOLACTONE 25 MG TAB PO SCH (08:38)
[2023-02-08] MEDS: METOPROLOL TARTRATE 25 MG TAB PO SCH ×2 (08:38→20:40)
[2023-02-08 09:28] LABS: Basophils % (A) 0 %; Eosinophils # (A) 0.1 k/uL (0-0.7); Eosinophils % (A) 0 %; HCT 34.5 % (34.0-46.0); HGB 12.3 gm/dL (11.4-16.0); Lymphocytes % (A) 7 %; MCH 31.5 pg (25.0-35.0); MCHC 35.6 g/dL (31.0-37.0); MCV 88.5 fL (80.0-100.0); Mean Platelet Volume 7.6; Monocytes # (A) 1.2 k/uL (0-1.0); Monocytes % (A) 9 %; Neutrophils # (A) 11.8 k/uL (1.3-7.7); Neutrophils % (A) 82 %; Platelet Count 305 k/uL (150-450); WBC 14.3 k/uL (3.8-10.6)
[2023-02-08 09:33] LABS: African American GFR (CKD) >90 (>60 ml/min/1.73 sqM); Anion Gap 7 mmol/L; Blood Urea Nitrogen 13 mg/dL (7-17); Calcium 8.7 mg/dL (8.4-10.2); Carbon Dioxide 24 mmol/L (22-30); Chloride 96 mmol/L (98-107); Glucose 129 mg/dL (74-99); Non-African American GFR(CKD) >90 (>60 ml/min/1.73 sqM); Potassium 3.9 mmol/L (3.5-5.1); Sodium 127 mmol/L (137-145)
[2023-02-08] MEDS: METOCLOPRAMIDE 5 MG/ML 2 ML VIAL IVP SCH ×3 (09:43→16:59)
[2023-02-08 11:36] LABS: Glucose,Whole Blood 99 mg/dL (70-110)
--- NOTE | 2023-02-08 13:08 | P.DS ---
Providers Date of admission: 02/06/23 22:09 Expected date of discharge: 02/08/23 Attending physician: Justin Negron MD Primary care physician: Casi Salinas [facility] Course: Final Diagnoses: DKA, secondary to intractable vomiting and new medication. A1c 9.7, further diabetic teaching outpatient in clinic with PCP. Hyponatremia secondary to the above Hypertension Hyperlipidemia Hospital course:Janae Baca is a 67 yo F with PMH of T2DM, HTN who presented to the ED with nausea and vomiting over the past week and increasing malaise in the past few days. She states she was recently started on mounjaro for her DM but this medication caused her nausea and vomiting every day since she started it. She states she has not been able to keep food down. She denies hematemesis, diarrhea, fever, chills. She went to see her PCP over the weekend and was given a shot of zofran but that did not control her symptoms. On presentation pt tachycardic, WBC 27k, Na 126, Cr 1.3, glucose 500, lactic 3.3, anion gap 29. CT abd/pelvis no acute process. This morning reports some dry heaves despite Zofran. Blood sugars controlled, anion gap 7, bicarb 24. Reglan added to med regimen. Patient will be discharged home later today, in a stable condition with guarded prognosis, pending she is able to tolerate diet intake at lunch time with no emesis. Mounjaro discontinued, further diabetic recommendations outpatient in clinic with PCP. Complains of constipation and reports last bowel movement Tuesday-2 days ago, small firm. MiraLAX added to med regimen. Denies chest pain, palpitations or shortness of breath. Denies lightheadedness, dizziness or focal deficits. The impression and plan of care has been dictated as directed. : I performed a history and examination of this patient, discussed the same with the dictator. I agree with the dictator's note ,documented as a scribe. Any additional findings or plans will be noted. Patient Condition at Discharge: Stable Plan - Discharge Summary New Discharge Prescriptions: New Metoclopramide [Reglan] 5 mg PO Q6H PRN #30 tab PRN Reason: Nausea polyethylene glycoL 3350 [Miralax] 17 gm PO DAILY packet Continue metFORMIN HCL [Glucophage] 500 mg PO BID Cyanocobalamin (Vitamin B-12) [Vitamin B-12] 1,000 mcg PO DAILY Insulin Degludec [Tresiba Flextouch U-200 Pen] 24 - 30 unit SQ DAILY lisinopriL [Zestril] 2.5 mg PO DAILY #30 tab Metoprolol Tartrate [Lopressor] 25 mg PO BID #60 tab Spironolactone [Aldactone] 25 mg PO DAILY #30 tab Magnesium Oxide [Mag-Ox] 400 mg PO HS ondansetron HCL [Zofran] 8 mg PO Q8HR PRN PRN Reason: Nausea And Vomiting Cholecalciferol [Vitamin D3 (25 Mcg = 1000 Iu)] 25 mcg PO DAILY Atorvastatin Calcium [Lipitor] 80 mg PO HS Insulin Aspart [NovoLOG Flexpen] See Protocol SQ AC-TID Discharge Medication List metFORMIN HCL [Glucophage] 500 mg PO BID 10/03/16 [History] Cyanocobalamin (Vitamin B-12) [Vitamin B-12] 1,000 mcg PO DAILY 05/15/18 [History] Insulin Degludec [Tresiba Flextouch U-200 Pen] 24 - 30 unit SQ DAILY 05/15/18 [History] Metoprolol Tartrate [Lopressor] 25 mg PO BID #60 tab 05/18/18 [Rx] Spironolactone [Aldactone] 25 mg PO DAILY #30 tab 05/18/18 [Rx] lisinopriL [Zestril] 2.5 mg PO DAILY #30 tab 05/18/18 [Rx] Atorvastatin Calcium [Lipitor] 80 mg PO HS 02/06/23 [History] Cholecalciferol [Vitamin D3 (25 Mcg = 1000 Iu)] 25 mcg PO DAILY 02/06/23 [History] Insulin Aspart [NovoLOG Flexpen] See Protocol SQ AC-TID 02/06/23 [History] Magnesium Oxide [Mag-Ox] 400 mg PO HS 02/06/23 [History] ondansetron HCL [Zofran] 8 mg PO Q8HR PRN 02/06/23 [History] Metoclopramide [Reglan] 5 mg PO Q6H PRN #30 tab 02/08/23 [Rx] polyethylene glycoL 3350 [Miralax] 17 gm PO DAILY packet 02/08/23 [Rx] Follow up Appointment(s)/Referral(s): Justin Negron MD [STAFF PHYSICIAN] - 3 Days
[2023-02-08 16:21] LABS: Glucose,Whole Blood 45 mg/dL (70-110)
[2023-02-08 16:36] LABS: Glucose,Whole Blood 66 mg/dL (70-110)
[2023-02-08 16:48] LABS: Glucose,Whole Blood 128 mg/dL (70-110)
[2023-02-08 20:03] LABS: Glucose,Whole Blood 134 mg/dL (70-110)
[2023-02-08] MEDS: polyethylene glycoL 3350 17 GM POWD.PACK PO SCH (20:39)
[2023-02-08] MEDS: ATORVASTATIN 80 MG TAB PO SCH (20:40)
[2023-02-08] MEDS: D5-0.45% NACL WITH KCL 20MEQ/L 1,000 ML IV SCH ×2 (20:41→20:56)
[2023-02-09] MEDS: METOCLOPRAMIDE 5 MG/ML 2 ML VIAL IVP SCH ×4 (00:19→17:04)
[2023-02-09 05:53] LABS: Glucose,Whole Blood 141 mg/dL (70-110)
[2023-02-09] MEDS: INSULIN ASPART (NovoLOG) 100 UNIT/ML VIAL SQ SCH ×4 (05:59→20:32)
[2023-02-09] MEDS: INSULIN DETEMIR (LEVEMIR) 100 UNIT/ML SYR SQ SCH (06:34)
[2023-02-09] MEDS: polyethylene glycoL 3350 17 GM POWD.PACK PO SCH (08:53)
[2023-02-09] MEDS: METOPROLOL TARTRATE 25 MG TAB PO SCH ×2 (09:06→20:33)
[2023-02-09] MEDS: SPIRONOLACTONE 25 MG TAB PO SCH (09:06)
[2023-02-09] MEDS ORDERED: PROMETHAZINE SUPPOSITORY 25 MG SUPP RECTAL STA (09:50)
[2023-02-09] MEDS ORDERED: PROCHLORPERAZINE INJ 10 MG/2 ML VIAL IVP STA (09:56)
[2023-02-09] MEDS ORDERED: ONDANSETRON 4 MG/2 ML VIAL IVP PRN (10:37)
[2023-02-09] MEDS: PANTOPRAZOLE 40 MG/10 ML VIAL IVP SCH ×2 (10:38→20:33)
[2023-02-09 11:34] LABS: Glucose,Whole Blood 133 mg/dL (70-110)
[2023-02-09] MEDS: D5-0.45% NACL WITH KCL 20MEQ/L 1,000 ML IV SCH (15:18)
[2023-02-09 16:21] LABS: Glucose,Whole Blood 166 mg/dL (70-110)
[2023-02-09 20:07] LABS: Glucose,Whole Blood 54 mg/dL (70-110)
[2023-02-09 20:22] LABS: Glucose,Whole Blood 83 mg/dL (70-110)
[2023-02-09] MEDS: ATORVASTATIN 80 MG TAB PO SCH (20:33)
[2023-02-10 00:27] LABS: Glucose,Whole Blood 51 mg/dL (70-110)
[2023-02-10] MEDS: METOCLOPRAMIDE 5 MG/ML 2 ML VIAL IVP SCH ×3 (00:33→12:39)
[2023-02-10 00:48] LABS: Glucose,Whole Blood 74 mg/dL (70-110)
[2023-02-10 06:19] LABS: Basophils % (A) 0 %; Eosinophils % (A) 0 %; HCT 35.8 % (34.0-46.0); HGB 12.6 gm/dL (11.4-16.0); Lymphocytes # (A) 1.9 k/uL (1.0-4.8); Lymphocytes % (A) 24 %; MCH 31.4 pg (25.0-35.0); MCHC 35.1 g/dL (31.0-37.0); MCV 89.6 fL (80.0-100.0); Mean Platelet Volume 7.7; Monocytes # (A) 0.6 k/uL (0-1.0); Monocytes % (A) 7 %; Neutrophils # (A) 5.2 k/uL (1.3-7.7); Neutrophils % (A) 66 %; Platelet Count 303 k/uL (150-450); RBC 3.99 m/uL (3.80-5.40); RDW 12.9 % (11.5-15.5); WBC 7.9 k/uL (3.8-10.6)
[2023-02-10 06:28] LABS: African American GFR (CKD) >90 (>60 ml/min/1.73 sqM); Anion Gap 1 mmol/L; Blood Urea Nitrogen 12 mg/dL (7-17); Calcium 8.4 mg/dL (8.4-10.2); Carbon Dioxide 31 mmol/L (22-30); Chloride 101 mmol/L (98-107); Glucose 131 mg/dL (74-99); Non-African American GFR(CKD) >90 (>60 ml/min/1.73 sqM); Potassium 4.1 mmol/L (3.5-5.1); Sodium 133 mmol/L (137-145)
[2023-02-10] MEDS ORDERED: INSULIN DETEMIR (LEVEMIR) 100 UNIT/ML SYR SQ SCH (07:00)
[2023-02-10 07:02] LABS: Glucose,Whole Blood 140 mg/dL (70-110)
[2023-02-10] MEDS: INSULIN ASPART (NovoLOG) 100 UNIT/ML VIAL SQ SCH ×2 (09:07→12:45)
[2023-02-10] MEDS: PANTOPRAZOLE 40 MG/10 ML VIAL IVP SCH (09:08)
[2023-02-10] MEDS: SPIRONOLACTONE 25 MG TAB PO SCH (09:09)
[2023-02-10] MEDS: METOPROLOL TARTRATE 25 MG TAB PO SCH (09:09)
[2023-02-10] MEDS: polyethylene glycoL 3350 17 GM POWD.PACK PO SCH (09:10)
[2023-02-10 11:20] LABS: Glucose,Whole Blood 251 mg/dL (70-110)
[2023-02-10 13:24] VITALS: BP 148/69; PULSE 65; RESP 18; TEMP 98.4
--- NOTE | 2023-02-10 14:49 | P.DS ---
Providers Date of admission: 02/06/23 22:09 Expected date of discharge: 02/10/23 Attending physician: Justin Negron MD Primary care physician: Casi Salinas [facility] Course: Discharge diagnoses; DKA, secondary to intractable vomiting and new medication. A1c 9.7, further diabetic teaching outpatient in clinic with PCP. Hyponatremia secondary to the above Hypertension Hyperlipidemia Hospital course; Janae Baca is a 67 yo F with PMH of T2DM, HTN who presented to the ED with nausea and vomiting over the past week and increasing malaise in the past few days. She states she was recently started on mounjaro for her DM but this medication caused her nausea and vomiting every day since she started it. She states she has not been able to keep food down. She denies hematemesis, diarrhea, fever, chills. She went to see her PCP over the weekend and was given a shot of zofran but that did not control her symptoms. On presentation pt tachycardic, WBC 27k, Na 126, Cr 1.3, glucose 500, lactic 3.3, anion gap 29. CT abd/pelvis no acute process. This morning reports some dry heaves despite Zofran. Blood sugars controlled, anion gap 7, bicarb 24. Reglan added to med regimen. Patient will be discharged home later today, in a stable condition with guarded prognosis, pending she is able to tolerate diet intake at lunch time with no emesis. Mounjaro discontinued, further diabetic recommendations outpatient in clinic with PCP. Complains of constipation and reports last bowel movement Tuesday-2 days ago, small firm. MiraLAX added to med regimen. Denies chest pain, palp itations or shortness of breath. Denies lightheadedness, dizziness or focal deficits /13. Operative cocaine. Patient currently tolerating diet. States she feels much better. Patient being discharged in stable condition PHYSICAL EXAMINATION: GENERAL: The patient is alert and oriented x3, not in any acute distress. Well developed, well nourished. HEENT: Pupils are round and equally reacting to light. EOMI. No scleral icterus. No conjunctival pallor. Normocephalic, atraumatic. No pharyngeal erythema. No thyromegaly. CARDIOVASCULAR: S1 and S2 present. No murmurs, rubs, or gallops. PULMONARY: Chest is clear to auscultation, no wheezing or crackles. ABDOMEN: Soft, nontender, nondistended, normoactive bowel sounds. No palpable organomegaly. MUSCULOSKELETAL: No joint swelling or deformity. EXTREMITIES: No cyanosis, clubbing, or pedal edema. NEUROLOGICAL: Gross neurological examination did not reveal any focal deficits. SKIN: No rashes. Patient Condition at Discharge: Stable Plan - Discharge Summary New Discharge Prescriptions: New Metoclopramide [Reglan] 5 mg PO Q6H PRN #30 tab PRN Reason: Nausea polyethylene glycoL 3350 [Miralax] 17 gm PO DAILY packet Omeprazole [PriLOSEC] 40 mg PO DIRECTED #35 cap Continue metFORMIN HCL [Glucophage] 500 mg PO BID Cyanocobalamin (Vitamin B-12) [Vitamin B-12] 1,000 mcg PO DAILY Insulin Degludec [Tresiba Flextouch U-200 Pen] 24 - 30 unit SQ DAILY lisinopriL [Zestril] 2.5 mg PO DAILY #30 tab Metoprolol Tartrate [Lopressor] 25 mg PO BID #60 tab Spironolactone [Aldactone] 25 mg PO DAILY #30 tab Magnesium Oxide [Mag-Ox] 400 mg PO HS ondansetron HCL [Zofran] 8 mg PO Q8HR PRN PRN Reason: Nausea And Vomiting Cholecalciferol [Vitamin D3 (25 Mcg = 1000 Iu)] 25 mcg PO DAILY Atorvastatin Calcium [Lipitor] 80 mg PO HS Insulin Aspart [NovoLOG Flexpen] See Protocol SQ AC-TID Discharge Medication List metFORMIN HCL [Glucophage] 500 mg PO BID 10/03/16 [History] Cyanocobalamin (Vitamin B-12) [Vitamin B-12] 1,000 mcg PO DAILY 05/15/18 [History] Insulin Degludec [Tresiba Flextouch U-200 Pen] 24 - 30 unit SQ DAILY 05/15/18 [History] Metoprolol Tartrate [Lopressor] 25 mg PO BID #60 tab 05/18/18 [Rx] Spironolactone [Aldactone] 25 mg PO DAILY #30 tab 05/18/18 [Rx] lisinopriL [Zestril] 2.5 mg PO DAILY #30 tab 05/18/18 [Rx] Atorvastatin Calcium [Lipitor] 80 mg PO HS 02/06/23 [History] Cholecalciferol [Vitamin D3 (25 Mcg = 1000 Iu)] 25 mcg PO DAILY 02/06/23 [History] Insulin Aspart [NovoLOG Flexpen] See Protocol SQ AC-TID 02/06/23 [History] Magnesium Oxide [Mag-Ox] 400 mg PO HS 02/06/23 [History] ondansetron HCL [Zofran] 8 mg PO Q8HR PRN 02/06/23 [History] Metoclopramide [Reglan] 5 mg PO Q6H PRN #30 tab 02/08/23 [Rx] polyethylene glycoL 3350 [Miralax] 17 gm PO DAILY packet 02/08/23 [Rx] Omeprazole [PriLOSEC] 40 mg PO DIRECTED #35 cap 02/09/23 [Rx] Follow up Appointment(s)/Referral(s): Justin Negron MD [STAFF PHYSICIAN] - 3 Days Patient Instructions/Handouts: Metoclopramide (By mouth), Omeprazole (By mouth) Discharge Disposition: HOME SELF-CARE
== END 2023-02-10 15:44 | disposition home or self-care (01) | DRG 638 ==
LOC: EC 19:17 → 3SCARD 22:09 → 5NMEDONC 02-10 01:11
PROVIDERS: ADMIT Family Medicine; ATTEND Family Medicine
DX: E11.10 Type 2 diabetes mellitus with ketoacidosis without coma (principal); E87.1 Hypo-osmolality and hyponatremia; E78.00 Pure hypercholesterolemia, unspecified; I10 Essential (primary) hypertension; E78.5 Hyperlipidemia, unspecified; I25.2 Old myocardial infarction; K59.00 Constipation, unspecified; K21.9 Gastro-esophageal reflux disease without esophagitis; T38.3X5A Adverse effect of insulin and oral hypoglycemic [antidiabetic] drugs, initial encounter; Z79.84 Long term (current) use of oral hypoglycemic drugs; Z79.4 Long term (current) use of insulin; Z79.899 Other long term (current) drug therapy; Z83.3 Family history of diabetes mellitus
CPT/HCPCS: 36415; 74176; 80048; 80051; 80053; 82009; 82565; 82947; 83036; 83605; 83690; 83735; 84100; 84484; 84520; 85025; 93005; 96361; 96374; 99291

== ENCOUNTER → 2024-07-20 | Outpatient (CLI) | payer MEDICARE, OTHER ==
[2024-07-20 21:04] LABS: Chol/HDL Ratio 2.32 Ratio; VLDL Calculation 12.82 mg/dL (5.00-40.00)
[2024-07-20 21:05] LABS: ALT 24 U/L (8-44); AST 21 U/L (13-35); Albumin 4.3 g/dL (3.8-4.9); Albumin/Globulin Ratio 2.26 Ratio (1.60-3.17); Alkaline Phosphatase 81 U/L (41-126); Blood Urea Nitrogen 9.1 mg/dL (9.0-27.0); Calcium 9.5 mg/dL (8.7-10.3); Chloride 105 mmol/L (96-109); Globulin 1.9 g/dL (1.6-3.3); Glucose 57 mg/dL (70-110); LDL Cholesterol,Calculated 55.4 mg/dL (0.0-131.0); Potassium 4.2 mmol/L (3.5-5.5); Sodium 141 mmol/L (135-145); Total Bilirubin 0.8 mg/dL (0.3-1.2); Total Protein 6.2 g/dL (6.2-8.2)
== END | disposition home or self-care (01) ==
LOC: LABWHC1 11:14
PROVIDERS: ATTEND Internal Medicine
DX: E10.65 Type 1 diabetes mellitus with hyperglycemia (principal)
CPT/HCPCS: 36415; 80053; 80061; 83036